=== PATIENT | female | born 1965 | race Caucasian/White ===

== ENCOUNTER → 2016-11-03 | Outpatient (REF) | payer BC ==
[2016-11-03 20:00] LABS: ALBUMIN 3.8 GM/DL (3.2-5.2); ALBUMIN/GLOBULIN RATIO 1.19 (1.00-1.93); ALKALINE PHOSPHATASE 70 U/L (45-117); ALT/SGPT 20 U/L (12-78); ANION GAP 5 MEQ/L (8-16); AST/SGOT 10 U/L (15-37); BILIRUBIN,TOTAL 0.5 MG/DL (0.2-1.0); BLOOD UREA NITROGEN 17 MG/DL (7-18); CALCIUM LEVEL 8.5 MG/DL (8.5-10.1); CARBON DIOXIDE LEVEL 30 MEQ/L (21-32); CHLORIDE LEVEL 104 MEQ/L (98-107); CHOLESTEROL LEVEL 238 MG/DL (<200); CREATININE FOR GFR 0.76 MG/DL (0.55-1.02); GLOMERULAR FILTRATION RATE > 60.0 (>51); GLUCOSE, FASTING 210 MG/DL (70-105); POTASSIUM SERUM 4.4 MEQ/L (3.5-5.1); SODIUM LEVEL 139 MEQ/L (136-145); TRIGLYCERIDES LEVEL 182 MG/DL (<150)
[2016-11-03 20:06] LABS: FREE T4 1.07 NG/DL (0.76-1.46)
== END ==
LOC: M SFHCADAM 09:57
PROVIDERS: ATTEND Family Medicine
DX: E11.9 Type 2 diabetes mellitus without complications (principal); F41.9 Anxiety disorder, unspecified

== ENCOUNTER → 2016-11-03 | Outpatient (CLI) | payer BC | LOC: M ADAMS 13:06 | PROVIDERS: ATTEND Family Medicine | DX: E11.9 Type 2 diabetes mellitus without complications (principal); F41.9 Anxiety disorder, unspecified ==

== ENCOUNTER 2016-11-18 14:11 | Emergency (ER) | payer BC ==
[~2016-11-18] VITALS: Ht 167.6 cm; Wt 90.7 kg
[2016-11-18] MEDS ORDERED: ASPI81TA85 PO (14:36)
[2016-11-18] MEDS ORDERED: GLIP10TA PO (14:36)
[2016-11-18] MEDS ORDERED: SYMB16INH INH (14:36)
[2016-11-18] MEDS ORDERED: METF500T PO (14:36)
[2016-11-18] MEDS ORDERED: ZANTTAB9 PO (14:36)
[2016-11-18] MEDS ORDERED: NAPR500T PO (16:40)
[2016-11-18] MEDS ORDERED: NAPROXEN 250 MG TAB PO ONE (16:45)
[2016-11-18 16:55] VITALS: BP 144/90
--- NOTE | 2016-11-19 09:19 | REP ---
LEFT KNEE SERIES, COMPLETE: 11/18/2016 CLINICAL HISTORY: Knee injury, pain. No prior study. FINDINGS: Spurs in the tibial spines, medial greater than lateral joint margin are noted and suggesting some osteoarthritic change. There appears to be a suprapatellar effusion on the lateral view. The patient could not assume a sunrise position. I cannot tell if there is patellar subluxation. No visible fracture, loose body, osteochondral defect. IMPRESSION: 1. Some degenerative changes at the medial and lateral compartments without visible or displaced/depressed fracture. There is a joint effusion present. Signed by Matrin Saldivar MD 11/19/2016 05:06 P
== END 2016-11-18 16:56 | disposition home or self-care (01) ==
LOC: M ED 16:30
DX: S83.92XA Sprain of unspecified site of left knee, initial encounter (principal); W10.8XXA Fall (on) (from) other stairs and steps, initial encounter; Y92.009 Unspecified place in unspecified non-institutional (private) residence as the place of occurrence of the external cause; Y93.01 Activity, walking, marching and hiking; Y99.8 Other external cause status; J45.909 Unspecified asthma, uncomplicated; E11.9 Type 2 diabetes mellitus without complications; Z88.5 Allergy status to narcotic agent; Z88.0 Allergy status to penicillin; Z79.899 Other long term (current) drug therapy; Z79.51 Long term (current) use of inhaled steroids; Z79.84 Long term (current) use of oral hypoglycemic drugs; Z79.82 Long term (current) use of aspirin

== ENCOUNTER 2017-03-17 19:03 | Emergency (ER) | payer BC ==
[~2017-03-17] VITALS: Ht 160 cm; Wt 90.9 kg
[~2017-03-17 19:03] MED LIST: ASPI81TA85 PO; GLIP10TA PO; METF500T13 PO; NAPR500T PO; SYMB16INH INH; ZANTTAB9 PO
[2017-03-17] MEDS ORDERED: SIMV40TA2 PO (19:19)
[2017-03-17] MEDS ORDERED: METF500T13 PO (19:19)
[2017-03-17] MEDS ORDERED: ACET325T PO (19:19)
[2017-03-17] MEDS ORDERED: MORPHINE 10 MG/ML 1ML VIAL IM ONE (20:00)
[2017-03-17] MEDS ORDERED: LIDOCAINE 2% MDV 20 ML VIAL As Ordered ONE (20:41)
[2017-03-17 21:27] VITALS: BP 129/86
--- NOTE | 2017-03-18 07:42 | REP ---
Right right toes of four views: There is a transverse fracture in the neck of the fifth digit proximal phalange. There is angulation but no displacement. No dislocation. Mineralization joint spaces are otherwise unremarkable. Signed by El Card MD 03/18/2017 07:33 A
--- NOTE | 2017-03-18 07:43 | REP ---
Right foot two views AP and lateral projections: Comparison is the right toes earlier this same date. The fracture in the neck of the fifth digit proximal phalange has been satisfactorily reduced and is in satisfactory position alignment. Mineralization joint spaces are otherwise unremarkable. There is a calcaneal plantar spur. Signed by El Card MD 03/18/2017 07:34 A
[2017-06-16] MEDS ORDERED: RANI150C PO (16:33)
[2017-06-16] MEDS ORDERED: MOBI4TAB PO (17:53)
== END 2017-03-17 21:29 | disposition home or self-care (01) ==
LOC: M ED 19:03
DX: S92.514A Nondisplaced fracture of proximal phalanx of right lesser toe(s), initial encounter for closed fracture (principal); W22.09XA Striking against other stationary object, initial encounter; Y92.019 Unspecified place in single-family (private) house as the place of occurrence of the external cause; Y93.9 Activity, unspecified; Y99.8 Other external cause status; M77.31 Calcaneal spur, right foot; E11.9 Type 2 diabetes mellitus without complications; J45.909 Unspecified asthma, uncomplicated; E78.00 Pure hypercholesterolemia, unspecified; F17.200 Nicotine dependence, unspecified, uncomplicated; Z98.84 Bariatric surgery status

== ENCOUNTER → 2017-12-21 | Outpatient (REF) | payer BC ==
[2017-12-21 18:20] LABS: BASO # 0.1 10^3/uL (0.0-0.2); BASO % 1.4 % (0.0-1.0); EOS # 0.1 10^3/uL (0.0-0.50); EOS % 2.4 % (0.0-3.0); HEMATOCRIT 41.5 % (36.0-47.0); HEMOGLOBIN 13.7 g/dl (12.0-15.5); IMMATURE GRANULOCYTE % 0.2 % (0-3.0); LYMPH # 1.5 10^3/uL (1.5-4.5); LYMPH % 36.2 % (24.0-44.0); MEAN CORPUSCULAR HEMOGLOBIN 28.9 pg (27.0-33.0); MEAN CORPUSCULAR VOLUME 87.6 fl (80.0-96.0); MONO # 0.5 10^3/uL (0.0-0.8); MONO % 10.9 % (0.0-5.0); NEUTROPHILS % 48.9 % (36.0-66.0); PLATELET COUNT, AUTOMATED 255 10^3/uL (150-450); RED BLOOD COUNT 4.74 10^6/uL (4.00-5.40); RED CELL DISTRIBUTION WIDTH 11.8 % (11.5-14.5); WHITE BLOOD COUNT 4.1 10^3/uL (4.0-10.0)
[2017-12-21 18:37] LABS: ALBUMIN 3.8 GM/DL (3.2-5.2); ALBUMIN/GLOBULIN RATIO 1.15 (1.00-1.93); ALKALINE PHOSPHATASE 72 U/L (45-117); ALT/SGPT 19 U/L (12-78); ANION GAP 8 MEQ/L (8-16); AST/SGOT 10 U/L (7-37); BILIRUBIN,TOTAL 0.5 MG/DL (0.2-1.0); BLOOD UREA NITROGEN 13 MG/DL (7-18); CALCIUM LEVEL 8.6 MG/DL (8.5-10.1); CARBON DIOXIDE LEVEL 27 MEQ/L (21-32); CHLORIDE LEVEL 105 MEQ/L (98-107); ESTIMATED AVERAGE GLUCOSE 235 MG/DL (60-110); GLOMERULAR FILTRATION RATE > 60.0 (>51); GLUCOSE, FASTING 240 MG/DL (70-100); HEMOGLOBIN A1c 9.8 %; POTASSIUM SERUM 4.4 MEQ/L (3.5-5.1); SODIUM LEVEL 140 MEQ/L (136-145); THYROID STIMULATING HORMONE 0.512 uIU/ML (0.358-3.740); TOTAL PROTEIN 7.1 GM/DL (6.4-8.2)
== END ==
LOC: M SFHCADAM 09:39
DX: Z00.00 Encounter for general adult medical examination without abnormal findings (principal); E66.9 Obesity, unspecified
CPT/HCPCS: 84443

== ENCOUNTER → 2018-04-05 | Outpatient (REF) | payer BC ==
[2018-04-05 17:08] LABS: ESTIMATED AVERAGE GLUCOSE 174 MG/DL (60-110); HEMOGLOBIN A1c 7.7 %
== END ==
LOC: M SFHCADAM 08:49
DX: E11.9 Type 2 diabetes mellitus without complications (principal)
CPT/HCPCS: 83036

== ENCOUNTER → 2018-04-07 | Outpatient (REF) | payer BC ==
[2018-04-07 12:54] LABS: C REACTIVE PROTEIN QUANTITATIV 0.31 MG/DL (0.00-0.30)
[2018-04-07 12:54] LABS: RHEUMATOID FACTOR QUANT < 10.0 IU/ML (<15.0)
[2018-04-07 13:11] LABS: ERYTHROCYTE SEDIMENTATION RATE 37 mm/hr (0-30)
[2018-04-07 14:36] LABS: ESTIMATED AVERAGE GLUCOSE 171 MG/DL (60-110); HEMOGLOBIN A1c 7.6 %
[2018-04-08 14:22] LABS: ANTINUCLEAR ANTIBODIES DIRECT Negative (Negative); Lyme Disease IgG/IgM Antibodie <0.91 ISR (0.00-0.90); Lyme Disease IgM Ab Quantitati <0.80 index (0.00-0.79)
== END ==
LOC: M SFHCADAM 10:28
DX: M25.50 Pain in unspecified joint (principal); E11.9 Type 2 diabetes mellitus without complications
CPT/HCPCS: 83036

== ENCOUNTER → 2018-06-26 | Outpatient (REF) | payer BC ==
[2018-06-26 13:43] LABS: ESTIMATED AVERAGE GLUCOSE 160 MG/DL (60-110); HEMOGLOBIN A1c 7.2 %
== END ==
LOC: M SFHCADAM 08:35
DX: E11.9 Type 2 diabetes mellitus without complications (principal)

== ENCOUNTER → 2018-07-05 | Outpatient (REF) | payer BC ==
[2018-07-05 17:48] LABS: ALBUMIN 3.5 GM/DL (3.2-5.2); ALBUMIN/GLOBULIN RATIO 1.03 (1.00-1.93); ALKALINE PHOSPHATASE 72 U/L (45-117); ALT/SGPT 18 U/L (12-78); ANION GAP 7 MEQ/L (8-16); AST/SGOT 11 U/L (7-37); BILIRUBIN,TOTAL 0.3 MG/DL (0.2-1.0); BLOOD UREA NITROGEN 19 MG/DL (7-18); CARBON DIOXIDE LEVEL 27 MEQ/L (21-32); CHLORIDE LEVEL 105 MEQ/L (98-107); CREATININE FOR GFR 0.72 MG/DL (0.55-1.30); FREE T4 0.92 NG/DL (0.76-1.46); GLOMERULAR FILTRATION RATE > 60.0 (>51); GLUCOSE, FASTING 226 MG/DL (70-100); POTASSIUM SERUM 4.1 MEQ/L (3.5-5.1); SODIUM LEVEL 139 MEQ/L (136-145); TOTAL PROTEIN 6.9 GM/DL (6.4-8.2)
[2018-07-05 17:49] LABS: BASO # 0.1 10^3/uL (0.0-0.2); BASO % 1.1 % (0.0-1.0); EOS # 0.2 10^3/uL (0.0-0.50); EOS % 3.7 % (0.0-3.0); HEMATOCRIT 40.3 % (36.0-47.0); HEMOGLOBIN 13.5 g/dl (12.0-15.5); IMMATURE GRANULOCYTE % 0.2 % (0-3.0); LYMPH # 1.7 10^3/uL (1.5-4.5); LYMPH % 31.4 % (24.0-44.0); MEAN CORPUSCULAR HEMOGLOBIN 29.9 pg (27.0-33.0); MEAN CORPUSCULAR HGB CONC 33.5 g/dl (32.0-36.5); MEAN CORPUSCULAR VOLUME 89.4 fl (80.0-96.0); MONO # 0.7 10^3/uL (0.0-0.8); MONO % 12.4 % (0.0-5.0); NEUTROPHILS # 2.8 10^3/uL (1.8-7.7); NEUTROPHILS % 51.2 % (36.0-66.0); PLATELET COUNT, AUTOMATED 241 10^3/uL (150-450); RED BLOOD COUNT 4.51 10^6/uL (4.00-5.40); RED CELL DISTRIBUTION WIDTH 12.3 % (11.5-14.5); WHITE BLOOD COUNT 5.4 10^3/uL (4.0-10.0)
== END ==
LOC: M SFHCADAM 09:09
DX: R19.7 Diarrhea, unspecified (principal)
CPT/HCPCS: 84443

== ENCOUNTER → 2018-07-25 | Outpatient (CLI) | payer BC ==
[~2018-07-25] MED LIST changes: +ACET325T PO; +GASTROGRAFIN SOLUTION 30ML (Q9963) As Ordered ONE; +ISOVUE-370 76% 100ML VIAL (Q9967) As Ordered ONE; +MOBI4TAB PO; +NAPR-49 PO; -NAPR500T PO; +RANI150C PO; +SIMV40TA2 PO
--- NOTE | 2018-07-25 11:07 | REP ---
CT abdomen pelvis with IV and oral contrast: History: Diarrhea. No comparison CT study. CT contrast dose: 100 ml of intravenous Isovue 370. CT findings: Preliminary digital criminal justice instructor radiograph demonstrates an IUD, a normal bowel gas pattern, and a lap band device in the left upper quadrant. The lung bases are clear on axial CT images. There is evidence of a small hiatal hernia above the lap band at the GE junction. The liver and the spleen are normal in size. There is a 9 mm hypervascular nodule in the right lobe of the liver consistent with hemangioma. No other significant focal liver lesion is seen. Spleen is unremarkable. There is an accessory splenule. No adrenal lesion is seen. The pancreas is normal in appearance. No gallbladder abnormality is seen. No retroperitoneal mass or adenopathy is observed. Kidneys enhance symmetrically are morphologically intact. There is diverticulosis involving the left colon including splenic flexure and descending colon. Numerous diverticulosis changes are seen in the sigmoid colon but there is no CT evidence of diverticulitis. A normal appendix is seen posterior and medial to the cecum. There is a tiny umbilical hernia transmitting abdominal fat. No other abdominal wall defect is seen. IUD is seen in the uterus. No adnexal abnormality is seen. Urinary bladder is unremarkable. Bone window settings show no significant bony abnormality. Impression: 1. Status post lap band procedure. 2. Small sliding hiatal hernia. 3. Tiny umbilical hernia transmits a small quantity of abdominal fat. 4. Left colonic diverticulosis without CT evidence of diverticulitis. 5. Intrauterine device in place. Otherwise normal. Electronically Signed by Jad Jacome MD 07/25/2018 10:58 A
== END ==
LOC: M RAD 08:34
PROVIDERS: ATTEND Family Medicine
DX: R19.7 Diarrhea, unspecified (principal)
CPT/HCPCS: 74177; Q9963; Q9967

== ENCOUNTER → 2019-10-03 | Outpatient (REF) | payer OTHER ==
[~2019-10-03] MED LIST changes: -GASTROGRAFIN SOLUTION 30ML (Q9963) As Ordered ONE; -ISOVUE-370 76% 100ML VIAL (Q9967) As Ordered ONE; -NAPR-49 PO; +NAPR-837 PO; -SIMV40TA2 PO; +SIMV40TA20 PO
[2019-10-03 17:38] LABS: HEMATOCRIT 42.9 % (36.0-47.0); HEMOGLOBIN 13.8 g/dl (12.0-15.5); MEAN CORPUSCULAR HEMOGLOBIN 28.2 pg (27.0-33.0); MEAN CORPUSCULAR HGB CONC 32.2 g/dl (32.0-36.5); MEAN CORPUSCULAR VOLUME 87.6 fl (80.0-96.0); PLATELET COUNT, AUTOMATED 266 10^3/uL (150-450); WHITE BLOOD COUNT 5.3 10^3/uL (4.0-10.0)
[2019-10-03 17:53] LABS: ALBUMIN 3.8 GM/DL (3.2-5.2); ALT/SGPT 19 U/L (12-78); BILIRUBIN,TOTAL 0.5 MG/DL (0.2-1.0); BLOOD UREA NITROGEN 16 MG/DL (7-18); CALCIUM LEVEL 8.9 MG/DL (8.5-10.1); CARBON DIOXIDE LEVEL 28 MEQ/L (21-32); CHLORIDE LEVEL 102 MEQ/L (98-107); CHOLESTEROL LEVEL 268 MG/DL (<200); CREATININE FOR GFR 0.72 MG/DL (0.55-1.30); FREE T4 1.04 NG/DL (0.76-1.46); GLOMERULAR FILTRATION RATE > 60.0 (>51); GLUCOSE, FASTING 240 MG/DL (70-100); HDL CHOLESTEROL 42 MG/DL (>40); LDL CHOLESTEROL 164 MG/DL (<100); NON-HDL-C 226 MG/DL; SODIUM LEVEL 136 MEQ/L (136-145); THYROID STIMULATING HORMONE 0.826 uIU/ML (0.358-3.740); TOTAL PROTEIN 7.4 GM/DL (6.4-8.2); TRIGLYCERIDES LEVEL 311 MG/DL (<150)
[2019-10-03 18:10] LABS: MALB URINE SIEMENS 45.8 MG/L; MAU/CREAT RATIO 16.4 MCG/MG (0.0-30.0)
== END ==
LOC: M SFHCADAM 11:04
PROVIDERS: ATTEND Family Medicine
DX: Z00.00 Encounter for general adult medical examination without abnormal findings (principal); E11.69 Type 2 diabetes mellitus with other specified complication

== ENCOUNTER → 2019-10-03 | Outpatient (CLI) | payer OTHER | LOC: M ADAMS 12:44 | PROVIDERS: ATTEND Family Medicine | DX: Z00.00 Encounter for general adult medical examination without abnormal findings (principal) ==

== ENCOUNTER → 2019-11-16 | Outpatient (CLI) | payer OTHER | LOC: M LABSMTC 10:29 | PROVIDERS: ATTEND Family Medicine | DX: Z11.59 Encounter for screening for other viral diseases (principal); Z20.818 Contact with and (suspected) exposure to other bacterial communicable diseases ==

== ENCOUNTER 2019-11-22 06:21 | Emergency (ER) | payer OTHER ==
[2019-11-22 06:56] LABS: BASO % 0.6 % (0.0-1.0); EOS % 0.9 % (0.0-3.0); HEMATOCRIT 38.3 % (36.0-47.0); HEMOGLOBIN 12.9 g/dl (12.0-15.5); LYMPH % 29.5 % (24.0-44.0); MEAN CORPUSCULAR HEMOGLOBIN 28.5 pg (27.0-33.0); MEAN CORPUSCULAR HGB CONC 33.7 g/dl (32.0-36.5); MEAN CORPUSCULAR VOLUME 84.7 fl (80.0-96.0); MONO # 0.4 10^3/uL (0.0-0.8); MONO % 10.9 % (0.0-5.0); NEUTROPHILS # 1.9 10^3/uL (1.5-8.5); NEUTROPHILS % 57.8 % (36.0-66.0); PLATELET COUNT, AUTOMATED 181 10^3/uL (150-450); RED BLOOD COUNT 4.52 10^6/uL (4.00-5.40); WHITE BLOOD COUNT 3.3 10^3/uL (4.0-10.0)
[2019-11-22 07:15] VITALS: O2SAT 96
[2019-11-22 07:16] LABS: D-DIMER QUANT < 270 ng/ml (<500)
[2019-11-22 07:22] LABS: INR 0.99; PARTIAL THROMBOPLASTIN TIME 27.9 SECONDS (25.0-38.4); PROTHROMBIN TIME 12.8 SECONDS (11.8-14.0)
[2019-11-22 07:26] LABS: ALBUMIN 3.4 GM/DL (3.2-5.2); ALT/SGPT 21 U/L (12-78); BILIRUBIN,DIRECT 0.2 MG/DL (0.0-0.2); BILIRUBIN,TOTAL 0.3 MG/DL (0.2-1.0); BLOOD UREA NITROGEN 8 MG/DL (7-18); C REACTIVE PROTEIN QUANTITATIV 2.21 MG/DL (0.00-0.30); CALCIUM LEVEL 8.5 MG/DL (8.5-10.1); CARBON DIOXIDE LEVEL 24 MEQ/L (21-32); CHLORIDE LEVEL 104 MEQ/L (98-107); CK-MB VALUE MASS 1.2 NG/ML (<3.6); CPK CREATINE PHOSPHOKINASE 143 U/L (26-192); GLOMERULAR FILTRATION RATE > 60.0 (>51); GLUCOSE, FASTING 281 MG/DL (70-100); LDH LACTATE DEHYDROGENASE 188 U/L (84-246); MB/CK RELATIVE INDEX 0.84 (< OR =4); POTASSIUM SERUM 3.4 MEQ/L (3.5-5.1); SODIUM LEVEL 135 MEQ/L (136-145); TOTAL PROTEIN 7.7 GM/DL (6.4-8.2); TROPONIN I < 0.02 NG/ML (< 0.10)
[2019-11-22] MEDS ORDERED: SYMB16INH INH (08:06)
[2019-11-22] MEDS ORDERED: MOXIFLOXACIN 400 MG TAB PO ONE (08:45)
[2019-11-22 08:57] VITALS: BP 124/78
[2019-11-22] MEDS ORDERED: MOXI1TAB PO (09:04)
--- NOTE | 2019-11-22 09:55 | REP ---
REASON: Known coronavirus infection. PRIORS: None. The technique utilized in obtaining the radiograph has magnified the cardiac silhouette and accentuated the interstitial markings. A subtle developing opacity is seen in the right upper lobe region. Lung curran are otherwise clear, and the pleural angles are sharp. The heart is not enlarged. The osseous structures are within normal limits. IMPRESSION: Suspect developing right upper lobe pneumonia. Electronically Signed by Price Hodges DO 11/22/2019 10:45 A
--- NOTE | 2019-11-22 11:41 | ECGEPIP ---
[facility] - ED Test Date: 2019-11-22 Pat Name: RODNEY PHILLIPS Department: Room: - Gender: Female Community Center Coordinator: alejandra : 1965 Requested By: Staci Zavaleta Order Number: [id number] Reading MD: Staci Zavaleta Measurements Intervals [place] Rate: 94 P: 45 MT: 168 QRS: 6 QRSD: 75 T: 19 QT: 365 QTc: 458 Interpretive Statements SINUS RHYTHM LOW QRS VOLTAGE IN PRECORDIAL LEADS NONSPECIFIC ST T WAVE CHANGES NO PRIOR ECG FOR COMPARISON Electronically Signed on 11-22-2019 11:40:43 EDT by Staci Zavaleta
[2019-11-23] MEDS ORDERED: GLIP10TA18 PO (09:10)
[2019-11-23] MEDS ORDERED: VENTAER INH (09:10)
[2019-11-23] MEDS ORDERED: MOXI1TAB PO (09:10)
[2019-11-23] MEDS ORDERED: RANI150T14 PO (09:10)
[2019-11-23] MEDS ORDERED: METF10004 PO (09:10)
[2019-11-23] MEDS ORDERED: SYMB16INH INH (09:10)
== END 2019-11-22 09:20 | disposition home or self-care (01) ==
LOC: M ED 06:21
DX: U07.1 COVID-19 (principal); J12.81 Pneumonia due to SARS-associated coronavirus; Z20.89 Contact with and (suspected) exposure to other communicable diseases; E11.9 Type 2 diabetes mellitus without complications; E78.5 Hyperlipidemia, unspecified; K21.9 Gastro-esophageal reflux disease without esophagitis; J45.909 Unspecified asthma, uncomplicated; Z79.82 Long term (current) use of aspirin; Z79.4 Long term (current) use of insulin; Z79.899 Other long term (current) drug therapy; Z88.0 Allergy status to penicillin; Z88.5 Allergy status to narcotic agent

== ENCOUNTER 2019-11-23 06:38 | Inpatient (IN) | payer OTHER ==
[2019-11-23] VITALS (9 sets, daily range): BP systolic 111–122; BP diastolic 73–78; O2SAT 93–98
[~2019-11-23] VITALS: Ht 157.5 cm; Wt 87.4 kg
[~2019-11-23 06:38] MED LIST changes: +MOXI1TAB PO
[2019-11-23 07:25] LABS: BASO % 0.7 % (0.0-1.0); EOS % 0.5 % (0.0-3.0); HEMATOCRIT 41.1 % (36.0-47.0); HEMOGLOBIN 13.7 g/dl (12.0-15.5); LYMPH # 1.2 10^3/uL (1.5-5.0); LYMPH % 29.9 % (24.0-44.0); MEAN CORPUSCULAR HEMOGLOBIN 28.8 pg (27.0-33.0); MEAN CORPUSCULAR HGB CONC 33.3 g/dl (32.0-36.5); MEAN CORPUSCULAR VOLUME 86.3 fl (80.0-96.0); MONO # 0.4 10^3/uL (0.0-0.8); NEUTROPHILS # 2.4 10^3/uL (1.5-8.5); NEUTROPHILS % 59.2 % (36.0-66.0); PLATELET COUNT, AUTOMATED 205 10^3/uL (150-450); RED BLOOD COUNT 4.76 10^6/uL (4.00-5.40); WHITE BLOOD COUNT 4.1 10^3/uL (4.0-10.0)
[2019-11-23 07:53] LABS: ALBUMIN 3.3 GM/DL (3.2-5.2); ALT/SGPT 23 U/L (12-78); BILIRUBIN,TOTAL 0.3 MG/DL (0.2-1.0); BLOOD UREA NITROGEN 12 MG/DL (7-18); C REACTIVE PROTEIN QUANTITATIV 3.94 MG/DL (0.00-0.30); CALCIUM LEVEL 8.7 MG/DL (8.5-10.1); CARBON DIOXIDE LEVEL 25 MEQ/L (21-32); CHLORIDE LEVEL 103 MEQ/L (98-107); CK-MB VALUE MASS < 1.0 NG/ML (<3.6); CPK CREATINE PHOSPHOKINASE 129 U/L (26-192); CREATININE FOR GFR 0.88 MG/DL (0.55-1.30); GLOMERULAR FILTRATION RATE > 60.0 (>51); GLUCOSE, FASTING 275 MG/DL (70-100); LDH LACTATE DEHYDROGENASE 226 U/L (84-246); MB/CK RELATIVE INDEX 0.78 (< OR =4); POTASSIUM SERUM 3.6 MEQ/L (3.5-5.1); SODIUM LEVEL 137 MEQ/L (136-145); TOTAL PROTEIN 7.7 GM/DL (6.4-8.2); TROPONIN I < 0.02 NG/ML (< 0.10)
--- NOTE | 2019-11-23 08:04 | REP ---
Clinical: Dyspnea. COVID-19 positive . Comparison: 11/22/2019 . Findings: The mediastinum and cardiac silhouette are stable and within normal limits for portable technique. Very subtle air space disease along the periphery of the right hemithorax is again suggested. Trace linear atelectasis at the left base identified. Impression: Very subtle air space disease involving the periphery of the right lung similar to prior examination along with trace left basilar linear atelectasis. Electronically Signed by Grabiel Goodman MD 11/23/2019 07:55 A
[2019-11-23] MEDS ORDERED: COMBIVENT RESPIMAT 100-20MCG INHALER 4GM INH ONE (08:45)
[2019-11-23] MEDS ORDERED: ALBUTEROL 90 MCG/ACT 8GM HFA INHALER INH PRN ×2 (09:00→11:30)
[2019-11-23] MEDS ORDERED: predniSONE 20 MG TAB PO SCH (09:00)
[2019-11-23] MEDS ORDERED: METF10004 PO (09:10)
[2019-11-23] MEDS ORDERED: MOXI1TAB PO (09:10)
[2019-11-23] MEDS ORDERED: VENTAER INH (09:10)
[2019-11-23] MEDS ORDERED: SYMB16INH INH (09:10)
[2019-11-23] MEDS ORDERED: GLIP10TA18 PO (09:10)
[2019-11-23] MEDS ORDERED: RANI150T14 PO (09:10)
[2019-11-23] MEDS: AZITHROMYCIN INJ 500 MG, VIAL MATE ADAPTER 1 EACH in D5W 250 ML IV SCH (10:08)
[2019-11-23 10:32] LABS: BASO % 0.6 % (0.0-1.0); EOS % 0.3 % (0.0-3.0); HEMATOCRIT 41.7 % (36.0-47.0); HEMOGLOBIN 14.3 g/dl (12.0-15.5); LYMPH # 0.7 10^3/uL (1.5-5.0); LYMPH % 20.8 % (24.0-44.0); MEAN CORPUSCULAR HEMOGLOBIN 29.1 pg (27.0-33.0); MEAN CORPUSCULAR HGB CONC 34.3 g/dl (32.0-36.5); MEAN CORPUSCULAR VOLUME 84.9 fl (80.0-96.0); MONO # 0.3 10^3/uL (0.0-0.8); MONO % 8.7 % (0.0-5.0); NEUTROPHILS # 2.5 10^3/uL (1.5-8.5); PLATELET COUNT, AUTOMATED 194 10^3/uL (150-450); RED BLOOD COUNT 4.91 10^6/uL (4.00-5.40); WHITE BLOOD COUNT 3.6 10^3/uL (4.0-10.0)
[2019-11-23 10:48] LABS: INR 1.07; PARTIAL THROMBOPLASTIN TIME 24.3 SECONDS (25.0-38.4); PROTHROMBIN TIME 13.7 SECONDS (11.8-14.0)
[2019-11-23 10:51] LABS: D-DIMER QUANT 415.47 ng/ml (<500)
[2019-11-23 10:56] LABS: C REACTIVE PROTEIN QUANTITATIV 3.85 MG/DL (0.00-0.30); FERRITIN 312 NG/ML (8-252); LDH LACTATE DEHYDROGENASE 213 U/L (84-246); NT-PRO BNP 25 PG/ML (<125); TRIGLYCERIDES LEVEL 117 MG/DL (<150); TROPONIN I < 0.02 NG/ML (< 0.10)
[2019-11-23 11:42] LABS: HIV 1&2 SCREEN CENTAUR NEGATIVE (NEGATIVE)
[2019-11-23] MEDS ORDERED: GLUCAGON INJ 1MG VIAL SC PRN (13:15)
[2019-11-23] MEDS ORDERED: GLUCOSE 4GM CHEW TABLET PO PRN (13:15)
[2019-11-23] MEDS ORDERED: DEXTROSE 50% 50 ML SYRINGE IV PRN (13:15)
[2019-11-23] MEDS: COMBIVENT RESPIMAT 100-20MCG INHALER 4GM INH SCH ×2 (14:02→20:59)
[2019-11-23] MEDS: HYDROXYCHLOROQUINE 200 MG TAB PO SCH ×2 (14:23→20:41)
[2019-11-23] MEDS: ASPIRIN 81 MG CHEW TABLET PO SCH (14:24)
[2019-11-23] MEDS: FAMOTIDINE 20 MG TAB PO SCH (14:24)
[2019-11-23] MEDS: ENOXAPARIN 40MG/0.4ML SYRINGE (J1650 PER 10MG) SC SCH ×2 (14:25→20:41)
[2019-11-23] MEDS: ACETAMINOPHEN TAB 650MG DOSE (2X325MG) PO SCH ×2 (15:52→20:41)
[2019-11-23] MEDS: HumaLOG INSULIN (NovoLOG) PER UNIT SC SCH (16:51)
[2019-11-23] MEDS ORDERED: cefTRIAXone SOD 1 GM in D5W MINI-BAG PLUS 50 ML IV SCH (17:45)
--- NOTE | 2019-11-23 18:08 | HPEPDOC ---
[facility] Medical History & Physical Date of Admission Nov 23, 2019 Date of Service: Nov 23, 2019 Primary Care Physician: MARLEN MANRIQUEZ DO Attending Physician: Violeta Anguiano MD History and Physical CHIEF COMPLAINT: Shortness of breath HISTORY OF PRESENT ILLNESS: The patient is a 53-year-old female with past medical history of asthma, diabetes mellitus type 2, GERD who presented to [facility] emergency room with the chief complaint of worsening shortness of breath since 11/15/2019. The patient was diagnosed with Covid 19 on 11/17/2019. She's been having increased shortness of breath, a productive cough with clear sputum, lethargy, fevers at home as high as 101.4, nonbloody diarrhea, decreased appetite, body aches, dizziness and lightheadedness. She took her pulse ox at home which showed she was 90%. She felt as though she was in a "passed out". She tried taking 2 puffs of MDI inhaler but then called EMS. She came to the emergency room on 11/22/2019 and was discharged home with medications and told to follow-up with her primary care provider and public health. Since being at home; however, she has had increased shortness of breath, worsening back pain, dizziness and lightheadedness. She denies abdominal pain, chest pain. Her and daughter are also positive for Covid 19. In the emergency room, ABG on room air showed PaO2 in the 70s. She was placed on 2 L of oxygen. Other vital signs showed temperature 96.9, pulse 104, blood pressure 108/76, respiratory rate 28, O2 sat 96% on 2 L NC. Her lungs were diminished bilaterally on examination, no expiratory wheezing was heard. CXR showed subtle air space disease involving the periphery of the right lung similar to prior examination along with trace left basilar linear atelectasis. Fibrinogen, CRP, ferritin were elevated. D-dimer was asked than 500. The patient was admitted under inpatient status for acute asthma exacerbation, community acquired pneumonia, Covid 19 infection. REVIEW OF SYSTEMS: CONSTITUTIONAL: Denies unexplained weight gain or weight loss, night sweats EYES: Denies eye drainage, eye pain, visual changes, dry/irritated eye EARS, NOSE, MOUTH, THROAT: Denies difficulty hearing, ringing in ears, mouth sores, loose teeth, sore throat, facial numbness or pain NECK: Denies swollen glands CARDIOVASCULAR: Denies irregular heartbeat, chest pains, swelling of feet or legs RESPIRATORY: Denies night sweats, oxygen at home, coughing up blood, cough lasting > 1 month GASTROINTESTINAL: Denies abdominal pain, constipation, bloody stool, heartburn, nausea, vomiting GENITOURINARY: Denies painful urination, bloody urine, frequent urination, urgency, leaking urine, impotence MUSCULOSKELETAL: Denies joint pain, muscle pain, leg swelling INTEGUMENTARY: Denies rash, itching, new skin lesion, change in existing skin lesion, hair loss or increase, breast changes. NEUROLOGICAL: Denies headaches, numbness or tingling PSYCHIATRIC: Denies depression, anxiety, recurrent bad thoughts, mood swings, hallucinations PAST MEDICAL HISTORY: 1. Asthma 2. Diabetes mellitus type II 3. GERD 4. COVID 19 infection (Dx 11/17/2019) 5. Tobacco use history PAST SURGICAL HISTORY: 1. Right ACL repair 2. Left meniscus surgery 3. Lap band placement FAMILY HISTORY: Father: CAD, [place], at 50 Mother: Breast cancer, dementia, diabetes. Alive. Brother: diabetes mellitus, tachycardia. Alive Sister: DM type II. Alive. SOCIAL HISTORY: Prior smoker for 15 years, less than 1 pack per day. Quit 16 years ago. Drinks alcohol socially. Denies drug use. Her primary care provider is Dr. Manriquez. She is a full code. ALLERGIES: Penicillin Hydrocodone Oxycodone HOME MEDICATIONS: Please see below. PHYSICAL EXAMINATION: CONSTITUTIONAL: No acute distress, resting comfortably, AAO x 3 EYES: PERRLA, EOM intact HENT, MOUTH: Normocephalic, atraumatic, moist mucous membranes, NECK: SUPPLE, no JVD, no lymphadenopathy, no carotid bruit CV: Tachycardic, Regular rhythm, S1S2 normal, no murmurs/rubs/gallops RESPIRATORY: Diminished breath sounds bilaterally, no rales/rhonchi/wheezes GI: Obese abdomen, BS positive in 4 quadrants, soft, nontender, nondistended, no rebound or guarding, no organomegaly : Deferred MUSCULOSKELETAL: Normal ROM. No cyanosis, clubbing, swelling, joint deformity, extremity edema INTEGUMENTARY: Intact, no rashes, no lesions, no erythema NEUROLOGIC: Cranial Nerves II-XII are intact, no focal deficits PSYCHIATRIC: Mood and affect are normal LABORATORY DATA: Please see below IMAGING: CXR showed subtle air space disease involving the periphery of the right lung similar to prior examination along with trace left basilar linear atelectasis. ASSESSMENT: Patient is a 53-year-old female admitted inpatient status for acute asthma exacerbation, community acquired pneumonia, Covid 19 infection. PLAN: 1. Acute asthma exacerbation. Methylprednisolone BID (d/c as soon as possible with COVID 19 infection), Combivent ATC, albuterol PRN, peak flow daily, telemetry, supplemental O2. 2. Confirmed Covid 19, community acquired pneumonia. Procalcitonin low. As per protocol follow-up CRP, CBC with differential, ferritin, pro-calcitonin, LDH, BNP, troponin, d-dimer, fibrinogen, PT/PTT every 12 hours. Follow up baseline HIV1/HIV2, interleukin-6, pro-calcitonin. Start hydroxychloroquine 400 mg by mouth twice a day 1 day then 200 mg by mouth daily 4 days and azithromycin 500 mg IV Q24H. Monitoring QTC with daily ECG and telemetry. Enoxaparin 0.5 mg/kg BID. Incentive spirometer Q2 hrs while awake, OOBTC and OOB with meals. Contact and droplet precautions initiated. Continue with supportive care and Q4H oxygen monitoring. O2 supplementation PRN. 3. DM type II. Holding home PO meds. ISS, AC/HS finger sticks, consistent carb diet. 4. GERD. Famotidine. 5. DVT px. Enoxaparin SC BID. DISPOSITION: Admitted under inpatient status. Plan is treatment and discharge home when medically improved. Vital Signs Vital Signs Date Time Temp Pulse Resp B/P (MAP) Pulse Ox O2 Delivery O2 Flow Rate FiO2 11/23/19 16:00 96 Room Air 11/23/19 15:43 98.9 103 24 114/78 (90) Laboratory Data Labs 24H Laboratory Tests 2 11/23/19 07:10: Immature Granulocyte % (Auto) 0.7, Neutrophils (%) (Auto) 59.2, Lymphocytes (%) (Auto) 29.9, Monocytes (%) (Auto) 9.0H, Eosinophils (%) (Auto) 0.5, Basophils (%) (Auto) 0.7, Neutrophils # (Auto) 2.4, Lymphocytes # (Auto) 1.2L, Monocytes # (Auto) 0.4, Eosinophils # (Auto) 0.0, Basophils # (Auto) 0.0, Nucleated Red Blood Cells % (auto) 0.0, D-Dimer, Quantitative 320.49, Anion Gap 9, Glomerular Filtration Rate > 60.0, Lactic Acid Level 1.7, Calcium Level 8.7, Total Bilirubin 0.3, Aspartate Amino Transf (AST/SGOT) 23, Alanine Aminotransferase (ALT/SGPT) 23, Alkaline Phosphatase 73, Lactate Dehydrogenase 226, Total Creatine Kinase 129, Creatine Kinase MB < 1.0, Creatine Kinase MB Relative Index 0.78, Troponin I < 0.02, C-Reactive Protein, Quantitative 3.94H, Total Protein 7.7, Albumin 3.3, Albumin/Globulin Ratio 0.75L, Procalcitonin 0.04 11/23/19 07:18: POC pH (Misc Panel) 7.480H, POC Base Excess (Misc Panel) -3.0L, POC Saturated Percent O2 (Misc) 96, POC pO2 (Misc Panel) 74.0L, POC pCO2 (Misc Panel) 27.3L, POC HCO3 (Misc Panel) 20.3L, POC Total CO2 (Misc Panel) 21.0L 11/23/19 10:13: Immature Granulocyte % (Auto) 0.6, Neutrophils (%) (Auto) 69.0H, Lymphocytes (%) (Auto) 20.8L, Monocytes (%) (Auto) 8.7H, Eosinophils (%) (Auto) 0.3, Basophils (%) (Auto) 0.6, Neutrophils # (Auto) 2.5, Lymphocytes # (Auto) 0.7L, Monocytes # (Auto) 0.3, Eosinophils # (Auto) 0.0, Basophils # (Auto) 0.0, Nucleated Red Blood Cells % (auto) 0.0, D-Dimer, Quantitative 415.47, Lactate Dehydrogenase 213, Troponin I < 0.02, C-Reactive Protein, Quantitative 3.85H, Prothrombin Time 13.7, Prothromb Time International Ratio 1.07, Activated Partial Thromboplast Time 24.3L, Fibrinogen 767H, Ferritin 312H, QK-Cex-G-Type Natriuretic Peptide 25, Triglycerides Level 117, HIV Antigen/Antibody Combo Qual NEGATIVE 11/23/19 10:14: 11/23/19 16:44: Bedside Glucose (Misc Panel) 319H CBC/BMP Laboratory Tests 11/23/19 07:10 11/23/19 10:13 Microbiology Microbiology 11/23/19 Blood Culture, Received Pending 11/23/19 Blood Culture, Received Pending Home Medications Scheduled Aspirin (Aspir 81) 81 Mg Tab, 81 MG PO DAILY Budesonide/Formoterol (Symbicort 160-4.5 Mcg Inhaler) 6 Gm Hfa.aer.ad, 2 PUFF INH BID Glipizide (Glipizide ER) 10 Mg Tab.er.24, 10 MG PO DAILY Metformin HCl (Metformin HCl) 1,000 Mg Tablet, 1,000 MG PO DAILY Moxifloxacin HCl (Moxifloxacin HCl) 400 Mg Tablet, 400 MG PO DAILY FILLED 11/22/19 FOR 7 DAYS Ranitidine HCl (Ranitidine HCl) 150 Mg Tablet, 1 TAB PO DAILY Scheduled PRN Acetaminophen (Pain Reliever) 325 Mg Tab, 650 MG PO QID PRN for PAIN Albuterol Sulfate (Ventolin Hfa) 18 Gm Hfa.aer.ad, 2 PUFFS INH QID PRN for SHORTNESS OF BREATH Allergies Coded Allergies: hydrocodone (Verified Allergy, Intermediate, altered mental , 11/22/19) oxycodone (Verified Allergy, Intermediate, altered, 11/22/19) Penicillins (Verified Allergy, Unknown, 11/22/19) A-FIB/CHADSVASC A-FIB History Current/History of A-Fib/PAF?: No Current PO Anticoag Therapy: No Age/Risk Factor Scoring CHADSVASC: CHADSVASC Response (Comments) Value Age Risk Factor Age < 65 years old 0 Gender Risk Factor Female 1 Hx of CHF No 0 Hx of HTN No 0 Hx of Stroke/TIA/or VTE No 0 Hx of Diabetes Yes 1 Hx of Vascular Disease No 0 Total 2 Treatment Treatment ordered: Other (enoxaparin) Other anticoagulant ordered: Violeta Roman MD Nov 23, 2019 18:08
[2019-11-23] MEDS: SYMBICORT 160/4.5MCG INHALER 6GM INH SCH (20:00)
[2019-11-23 21:04] LABS: BASO % 0.4 % (0.0-1.0); HEMATOCRIT 38.9 % (36.0-47.0); LYMPH # 0.6 10^3/uL (1.5-5.0); LYMPH % 22.8 % (24.0-44.0); MEAN CORPUSCULAR HEMOGLOBIN 28.3 pg (27.0-33.0); MEAN CORPUSCULAR HGB CONC 33.4 g/dl (32.0-36.5); MEAN CORPUSCULAR VOLUME 84.7 fl (80.0-96.0); MONO # 0.1 10^3/uL (0.0-0.8); MONO % 3.9 % (0.0-5.0); NEUTROPHILS # 1.9 10^3/uL (1.5-8.5); NEUTROPHILS % 72.1 % (36.0-66.0); PLATELET COUNT, AUTOMATED 221 10^3/uL (150-450); RED BLOOD COUNT 4.59 10^6/uL (4.00-5.40); WHITE BLOOD COUNT 2.6 10^3/uL (4.0-10.0)
[2019-11-23 21:16] LABS: INR 1.03; PARTIAL THROMBOPLASTIN TIME 29.4 SECONDS (25.0-38.4); PROTHROMBIN TIME 13.2 SECONDS (11.8-14.0)
[2019-11-23 21:40] LABS: C REACTIVE PROTEIN QUANTITATIV 3.92 MG/DL (0.00-0.30); FERRITIN 329 NG/ML (8-252); LDH LACTATE DEHYDROGENASE 189 U/L (84-246); NT-PRO BNP 26 PG/ML (<125); TRIGLYCERIDES LEVEL 196 MG/DL (<150); TROPONIN I < 0.02 NG/ML (< 0.10)
[2019-11-24] VITALS (24 sets, daily range): BP systolic 116–138; BP diastolic 68–90; O2SAT 92–96
[2019-11-24] MEDS: methylPREDNISolone INJ 125 MG/2 ML VIAL (J2930) IV SCH ×2 (01:19→14:09)
[2019-11-24] MEDS: COMBIVENT RESPIMAT 100-20MCG INHALER 4GM INH SCH ×4 (01:47→20:00)
[2019-11-24 06:12] LABS: BASO % 0.2 % (0.0-1.0); HEMATOCRIT 37.5 % (36.0-47.0); HEMOGLOBIN 13.1 g/dl (12.0-15.5); LYMPH # 0.6 10^3/uL (1.5-5.0); LYMPH % 12.5 % (24.0-44.0); MEAN CORPUSCULAR HEMOGLOBIN 29.4 pg (27.0-33.0); MEAN CORPUSCULAR HGB CONC 34.9 g/dl (32.0-36.5); MEAN CORPUSCULAR VOLUME 84.1 fl (80.0-96.0); MONO # 0.1 10^3/uL (0.0-0.8); NEUTROPHILS # 4.1 10^3/uL (1.5-8.5); NEUTROPHILS % 84.7 % (36.0-66.0); PLATELET COUNT, AUTOMATED 234 10^3/uL (150-450); RED BLOOD COUNT 4.46 10^6/uL (4.00-5.40); WHITE BLOOD COUNT 4.9 10^3/uL (4.0-10.0)
[2019-11-24 06:44] LABS: ALBUMIN 3.3 GM/DL (3.2-5.2); ALT/SGPT 23 U/L (12-78); BILIRUBIN,TOTAL 0.3 MG/DL (0.2-1.0); BLOOD UREA NITROGEN 15 MG/DL (7-18); C REACTIVE PROTEIN QUANTITATIV 3.48 MG/DL (0.00-0.30); CALCIUM LEVEL 8.8 MG/DL (8.5-10.1); CARBON DIOXIDE LEVEL 23 MEQ/L (21-32); CHLORIDE LEVEL 106 MEQ/L (98-107); CREATININE FOR GFR 0.63 MG/DL (0.55-1.30); FERRITIN 322 NG/ML (8-252); GLOMERULAR FILTRATION RATE > 60.0 (>51); GLUCOSE, FASTING 283 MG/DL (70-100); LDH LACTATE DEHYDROGENASE 194 U/L (84-246); NT-PRO BNP 35 PG/ML (<125); POTASSIUM SERUM 4.4 MEQ/L (3.5-5.1); SODIUM LEVEL 137 MEQ/L (136-145); TOTAL PROTEIN 7.3 GM/DL (6.4-8.2); TRIGLYCERIDES LEVEL 102 MG/DL (<150); TROPONIN I < 0.02 NG/ML (< 0.10)
[2019-11-24] MEDS: SYMBICORT 160/4.5MCG INHALER 6GM INH SCH ×2 (08:00→20:00)
[2019-11-24] MEDS: HYDROXYCHLOROQUINE 200 MG TAB PO SCH ×2 (08:29→20:57)
[2019-11-24] MEDS: HumaLOG INSULIN (NovoLOG) PER UNIT SC SCH ×3 (08:29→17:04)
[2019-11-24] MEDS: ENOXAPARIN 40MG/0.4ML SYRINGE (J1650 PER 10MG) SC SCH ×2 (08:29→20:58)
[2019-11-24] MEDS: ASPIRIN 81 MG CHEW TABLET PO SCH (08:30)
[2019-11-24] MEDS: FAMOTIDINE 20 MG TAB PO SCH (08:30)
[2019-11-24] MEDS: ACETAMINOPHEN TAB 650MG DOSE (2X325MG) PO SCH ×3 (08:30→20:58)
[2019-11-24] MEDS: AZITHROMYCIN INJ 500 MG, VIAL MATE ADAPTER 1 EACH in D5W 250 ML IV SCH (08:31)
--- NOTE | 2019-11-24 08:59 | ECGEPIP ---
[facility] Test Date: 2019-11-24 Pat Name: RODNEY PHILLIPS Department: Room: [place] [address] Gender: Female Parimutuel Ticket Seller: PEEWEE : 1965 Requested By: Violeta Chow Order Number: [id number] Reading MD: Alden Arciniega Measurements Intervals [place] Rate: 104 P: 51 CA: 195 QRS: 18 QRSD: 75 T: 8 QT: 355 QTc: 468 Interpretive Statements SINUS TACHYCARDIA, Low precordial voltages. ABNORMAL RHYTHM ECG Slightly increased heart rate compared with 11/23/2019. Electronically Signed on 11-24-2019 8:59:17 EDT by Alden Arciniega
--- NOTE | 2019-11-24 09:06 | ECGEPIP ---
[facility] - ED Test Date: 2019-11-23 Pat Name: RODNEY PHILLIPS Department: Room: [place] [address] Gender: Female Bindery Chief: : 1965 Requested By: FOUZIA Piedra Order Number: [id number] Reading MD: Vanessa Vasquez Measurements Intervals [place] Rate: 99 P: 29 NV: 160 QRS: 2 QRSD: 73 T: 9 QT: 357 QTc: 459 Interpretive Statements SINUS RHYTHM LOW QRS VOLTAGE IN PRECORDIAL LEADS NSTTW abnormalities SIMILAR 11/22/19 Electronically Signed on 11-24-2019 9:06:05 EDT by Vanessa Vasquez
[2019-11-24 09:44] LABS: INR 1.15; PROTHROMBIN TIME 14.5 SECONDS (11.8-14.0)
[2019-11-24 09:45] LABS: PARTIAL THROMBOPLASTIN TIME 29.2 SECONDS (25.0-38.4)
[2019-11-24 09:47] LABS: D-DIMER QUANT 966.35 ng/ml (<500)
--- NOTE | 2019-11-24 11:03 | IPNPDOC ---
Subjective Date Seen The patient was seen on 11/24/19. Subjective Chief Complaint/HPI Patient is comfortable. Feeling mild short of breath on exertion but otherwise improved air exchange since admission General: Denies: ROS Unobtainable, Chills, Night Sweats, Fatigue, Malaise, Normal Appetite, Other Symptoms Constitutional: Denies: Chills, Fever, Malaise, Night Sweats, Weakness, Fatig ue, Weight Loss, Lethargy, Other Pulmonary: Reports: Dyspnea; Denies: Cough, Pleuritic Chest Pain, Other Symptoms Cardiovascular: Denies: Chest Pain, Palpitations, Orthopnea, Paroxysmal Noc. Dyspnea, Edema, Lt Headedness, Other Symptoms Gastrointestinal: Denies: Nausea, Vomiting, Abdominal Pain, Diarrhea, Constipation, Melena, Hematochezia, Other Symptoms Genitourinary: Denies: Dysuria, Frequency, Incontinence, Hematuria, Retention, Other Symptoms Musculoskeletal: Denies: Neck Pain, Back Pain, Shoulder Pain, Arm Pain, Hand Pain, Leg Pain, Foot Pain, Joint Pain, Muscle Pain, Spasms, Other Symptoms Neurological: Denies: Weakness, Numbness, Incoordination, Change in speech, Confusion, Seizures, Other Symptoms Objective Physical Examination General Exam: Positive: Alert, Cooperative Eye Exam: Positive: PERRLA, Conjunctiva & lids normal ENT Exam: Positive: Atraumatic, Mucous membr. moist/pink Neck Exam: Positive: Supple Chest Exam: Positive: Clear to auscultation, Normal air movement Heart Exam: Positive: Normal S1, Normal S2 Abdomen Exam: Positive: Normal bowel sounds, Soft Extremity Exam: Positive: Normal pulses Skin Exam: Positive: Nl turgor and temperature Neuro Exam: Positive: Strength at 5/5 X4 ext, Sensation Intact, Cranial Nerves 3-12 NL Psych Exam: Positive: Memory Intact, Oriented x 3 Assessment /Plan Problems (1) Exacerbation of asthma Status: Acute Problem Text: Patient progressively improving Continue nebulizer and by mouth steroids as per orders Patient's pulse ox is 95% on room air Oxygen support as needed Possible discharge home on tapering dose of steroids and all her inhalers Out of bed as tolerated (2) SARS-associated coronavirus infection Status: Acute Problem Text: Patient was diagnosed with COVID-19 on 11/16 Continue supportive care Plan/VTE VTE Prophylaxis Ordered?: Yes VS, I&O, 24H, Fishbone Vital Signs/I&O Vital Signs Date Time Temp Pulse Resp B/P (MAP) Pulse Ox O2 Delivery O2 Flow Rate FiO2 11/24/19 10:00 93 Room Air 11/24/19 08:00 97.4 93 18 124/74 (91) I&O- Last 24 Hours up to 6 AM 11/24/19 05:59 Intake Total 1855 ml Output Total 1550 ml Balance 305 ml Laboratory Data 24H LABS Laboratory Tests 2 11/23/19 16:44: Bedside Glucose (Misc Panel) 319H 11/23/19 20:36: Bedside Glucose (Misc Panel) 317H 11/23/19 20:53: Immature Granulocyte % (Auto) 0.8, Neutrophils (%) (Auto) 72.1H, Lymphocytes (%) (Auto) 22.8L, Monocytes (%) (Auto) 3.9, Eosinophils (%) (Auto) 0.0, Basophils (%) (Auto) 0.4, Neutrophils # (Auto) 1.9, Lymphocytes # (Auto) 0.6L, Monocytes # (Auto) 0.1, Eosinophils # (Auto) 0.0, Basophils # (Auto) 0.0, Nucleated Red Blood Cells % (auto) 0.0, Prothrombin Time 13.2, Prothromb Time International Ratio 1.03, Activated Partial Thromboplast Time 29.4, Fibrinogen 740H, D-Dimer, Quantitative 2015.20H, Ferritin 329H, Lactate Dehydrogenase 189, Troponin I < 0.02, C-Reactive Protein, Quantitative 3.92H, EK-Uug-Y-Type Natriuretic Peptide 26, Triglycerides Level 196H 11/24/19 05:53: Immature Granulocyte % (Auto) 0.6, Neutrophils (%) (Auto) 84.7H, Lymphocytes (%) (Auto) 12.5L, Monocytes (%) (Auto) 2.0, Eosinophils (%) (Auto) 0.0, Basophils (%) (Auto) 0.2, Neutrophils # (Auto) 4.1, Lymphocytes # (Auto) 0.6L, Monocytes # (Auto) 0.1, Eosinophils # (Auto) 0.0, Basophils # (Auto) 0.0, Nucleated Red Blood Cells % (auto) 0.0, Ferritin 322H, Lactate Dehydrogenase 194, Troponin I < 0.02, C-Reactive Protein, Quantitative 3.48H, DV-Dpo-L-Type Natriuretic Peptide 35, Triglycerides Level 102, Anion Gap 8, Glomerular Filtration Rate > 60.0, Calcium Level 8.8, Total Bilirubin 0.3, Aspartate Amino Transf (AST/SGOT) 16, Alanine Aminotransferase (ALT/SGPT) 23, Alkaline Phosphatase 76, Total Protein 7.3, Albumin 3.3, Albumin/Globulin Ratio 0.83L 11/24/19 08:00: Prothrombin Time 14.5H, Prothromb Time International Ratio 1.15, Activated Partial Thromboplast Time 29.2, Fibrinogen 641H, D-Dimer, Quantitative 966.35H CBC/BMP Laboratory Tests 11/23/19 20:53 11/24/19 05:53 Microbiology Microbiology 11/23/19 Blood Culture - Preliminary, Resulted No growth after 24 hours . All specim... 11/23/19 Blood Culture - Preliminary, Resulted No growth after 24 hours . All specim... ARMIN FUCHS MD Nov 24, 2019 11:03
[2019-11-24 21:35] LABS: BASO % 0.1 % (0.0-1.0); HEMATOCRIT 36.7 % (36.0-47.0); HEMOGLOBIN 12.3 g/dl (12.0-15.5); LYMPH # 0.8 10^3/uL (1.5-5.0); LYMPH % 9.3 % (24.0-44.0); MEAN CORPUSCULAR HEMOGLOBIN 28.2 pg (27.0-33.0); MEAN CORPUSCULAR HGB CONC 33.5 g/dl (32.0-36.5); MEAN CORPUSCULAR VOLUME 84.2 fl (80.0-96.0); MONO # 0.4 10^3/uL (0.0-0.8); MONO % 4.1 % (0.0-5.0); NEUTROPHILS # 7.3 10^3/uL (1.5-8.5); NEUTROPHILS % 85.8 % (36.0-66.0); PLATELET COUNT, AUTOMATED 258 10^3/uL (150-450); RED BLOOD COUNT 4.36 10^6/uL (4.00-5.40); WHITE BLOOD COUNT 8.5 10^3/uL (4.0-10.0)
[2019-11-24 21:46] LABS: INR 1.05; PARTIAL THROMBOPLASTIN TIME 26.6 SECONDS (25.0-38.4); PROTHROMBIN TIME 13.4 SECONDS (11.8-14.0)
[2019-11-24 21:49] LABS: D-DIMER QUANT 435.15 ng/ml (<500)
[2019-11-24 21:57] LABS: FERRITIN 295 NG/ML (8-252); LDH LACTATE DEHYDROGENASE 181 U/L (84-246); NT-PRO BNP 252 PG/ML (<125); TRIGLYCERIDES LEVEL 138 MG/DL (<150); TROPONIN I < 0.02 NG/ML (< 0.10)
[2019-11-25] VITALS (8 sets, daily range): BP systolic 126–142; BP diastolic 76–98; O2SAT 90–95
[2019-11-25] MEDS: methylPREDNISolone INJ 125 MG/2 ML VIAL (J2930) IV SCH (01:35)
[2019-11-25] MEDS: COMBIVENT RESPIMAT 100-20MCG INHALER 4GM INH SCH ×2 (01:35→08:00)
[2019-11-25] MEDS ORDERED: PRED10TA2 PO (07:44)
[2019-11-25] MEDS ORDERED: HYDR200T3 PO (07:44)
[2019-11-25] MEDS: ENOXAPARIN 40MG/0.4ML SYRINGE (J1650 PER 10MG) SC SCH (08:26)
[2019-11-25] MEDS: HumaLOG INSULIN (NovoLOG) PER UNIT SC SCH (08:26)
[2019-11-25] MEDS: ASPIRIN 81 MG CHEW TABLET PO SCH (08:27)
[2019-11-25] MEDS: ACETAMINOPHEN TAB 650MG DOSE (2X325MG) PO SCH (08:27)
[2019-11-25] MEDS: FAMOTIDINE 20 MG TAB PO SCH (08:27)
[2019-11-25] MEDS ORDERED: AZITHROMYCIN 250MG TABLET PO SCH (09:00)
[2019-11-25 09:02] LABS: HEPATITIS B SURFACE ANTIGEN NEGATIVE (NEGATIVE)
[2019-11-25] MEDS ORDERED: VENTAER INH (09:21)
--- NOTE | 2019-11-25 10:15 | DS.PDOC ---
Discharge Summary General Date of Admission Nov 23, 2019 at 08:59 Date of Discharge 11/25/19 Discharge Summary PROCEDURES PERFORMED DURING STAY: None. ADMITTING DIAGNOSES: 1. Exacerbation of asthma, history of positive COVID infection recently. DISCHARGE DIAGNOSES: 1. Exacerbation of asthma, history of positive COVID infection recently. COMPLICATIONS/CHIEF COMPLAINT: Sars Associated Coronavirus Infection. HISTORY OF PRESENT ILLNESS: The patient is a 53-year-old female with past medical history of asthma, diabetes mellitus type 2, GERD who presented to [facility] emergency room with the chief complaint of worsening shortness of breath since 11/15/2019. The patient was diagnosed with Covid 19 on 11/17/2019. She's been having increased shortness of breath, a productive cough with clear sputum, lethargy, fevers at home as high as 101.4, nonbloody diarrhea, decreased appetite, body aches, dizziness and lightheadedness. She took her pulse ox at home which showed she was 90%. She felt as though she was in a "passed out". She tried taking 2 puffs of MDI inhaler but then called EMS. She came to the emergency room on 11/22/2019 and was discharged home with medications and told to follow-up with her primary care provider and public health. Since being at home; however, she has had increased shortness of breath, worsening back pain, dizziness and lightheadedness. She denies abdominal pain, chest pain. Her and daughter are also positive for Covid 19. In the emergency room, ABG on room air showed PaO2 in the 70s. She was placed on 2 L of oxygen. Other vital signs showed temperature 96.9, pulse 104, blood pressure 108/76, respiratory rate 28, O2 sat 96% on 2 L NC. Her lungs were di minished bilaterally on examination, no expiratory wheezing was heard. CXR showed subtle air space disease involving the periphery of the right lung similar to prior examination along with trace left basilar linear atelectasis. Fibrinogen, CRP, ferritin were elevated. D-dimer was asked than 500. The patient was admitted under inpatient status for acute asthma exacerbation, community acquired pneumonia, Covid 19 infection. HOSPITAL COURSE: Pt was admitted with exacerbation of asthma as patient does have a history of asthma in the past. She was also recently diagnosed with a positive Covid infection recently. Patient was started on IV steroids inhaler therapy and continue on home meds Initially. Also, she was supplemented with oxygen Patient responded very well to the above treatment. She was reluctant to go home yesterday. . She is clinically stable. Lungs are clear. Afebrile, asymptomatic and will be discharged home today to finish her hydroxychloroquine therapy for 5 days Patient also will be discharged on tapering dose of steroids and the MDI was renewed Patient has been advised to stay in quarantine 2 weeks from today of for diagnosis with Covid infection Follow with PCP in 2 weeks after discharge . DISCHARGE MEDICATIONS: Please see below. ALLERGIES: Please see below. PHYSICAL EXAMINATION ON DISCHARGE: VITAL SIGNS: Please see below. GENERAL: Within normal limits HEENT: PERRLA, extra ocular muscles intact NECK: Supple CARDIOVASCULAR EXAMINATION: S1, S2, regular RESPIRATORY EXAMINATION: Clear to A&P ABDOMINAL EXAMINATION: , Soft, nontender, bowel sounds present EXTREMITIES: No clubbing, cyanosis, edema SKIN: Normal NEUROLOGICAL EXAMINATION: No for a multifocal sensory deficit PSYCHIATRIC EXAMINATION: Normal LABORATORY DATA: Please see below. IMAGING: Chest x-ray: Impression: Very subtle air space disease involving the periphery of the right lung similar to prior examination along with trace left basilar linear atelectasis. PROGNOSIS: Good ACTIVITY: As tolerated. DIET: As tolerated DISCHARGE PLAN: Discharged home DISPOSITION: . Home with quarantine for 2 weeks since the diagnosis of Covid infection DISCHARGE INSTRUCTIONS: 1. As per discharge instruction. ITEMS TO FOLLOWUP ON ON OUTPATIENT: 1. Follow PCP after 2 weeks. DISCHARGE CONDITION: Stable. TIME SPENT ON DISCHARGE: 35 minutes. Vital Signs/I&Os Vital Signs Date Time Temp Pulse Resp B/P (MAP) Pulse Ox O2 Delivery O2 Flow Rate FiO2 11/25/19 08:00 97.6 113 16 142/98 (113) 91 Room Air I&O- Last 24 Hours up to 6 AM 11/25/19 06:00 Intake Total 1935 ml Output Total 3100 ml Balance -1165 ml Laboratory Data Labs 24H Laboratory Tests 2 11/24/19 11:46: Bedside Glucose (Misc Panel) 412H 11/24/19 16:51: Bedside Glucose (Misc Panel) 383H 11/24/19 20:53: Bedside Glucose (Misc Panel) 351H 11/24/19 21:15: Immature Granulocyte % (Auto) 0.7, Neutrophils (%) (Auto) 85.8H, Lymphocytes (%) (Auto) 9.3L, Monocytes (%) (Auto) 4.1, Eosinophils (%) (Auto) 0.0, Basophils (%) (Auto) 0.1, Neutrophils # (Auto) 7.3, Lymphocytes # (Auto) 0.8L, Monocytes # (Auto) 0.4, Eosinophils # (Auto) 0.0, Basophils # (Auto) 0.0, Nucleated Red Blood Cells % (auto) 0.0, Prothrombin Time 13.4, Prothromb Time International Ratio 1.05, Activated Partial Thromboplast Time 26.6, Fibrinogen 527H, D-Dimer, Quantitative 435.15, Ferritin 295H, Lactate Dehydrogenase 181, Troponin I < 0.02, C-Reactive Protein, Quantitative 2.30H, HK-Khz-L-Type Natriuretic Peptide 252H, Triglycerides Level 138 11/25/19 08:01: Bedside Glucose (Misc Panel) 361H CBC/BMP Laboratory Tests 11/24/19 21:15 FSBS Laboratory Tests Test 11/24/19 11:46 11/24/19 16:51 11/24/19 20:53 11/25/19 08:01 Range/Units Bedside Glucose (Misc Panel) 412 383 351 361 70-105 MG/DL Microbiology Microbiology 11/23/19 Blood Culture - Preliminary, Resulted No Growth after 48 hours. All Specime... 11/23/19 Blood Culture - Preliminary, Resulted No Growth after 48 hours. All Specime... Discharge Medications Scheduled Aspirin (Aspir 81) 81 Mg Tab, 81 MG PO DAILY, (Reported) Budesonide/Formoterol (Symbicort 160-4.5 Mcg Inhaler) 6 Gm Hfa.aer.ad, 2 PUFF INH BID, (Reported) Glipizide (Glipizide ER) 10 Mg Tab.er.24, 10 MG PO DAILY, (Reported) Hydroxychloroquine Sulfate (Hydroxychloroquine Sulfate) 200 Mg Tablet, 200 MG PO BID Metformin HCl (Metformin HCl) 1,000 Mg Tablet, 1,000 MG PO DAILY, (Reported) Prednisone (Prednisone) 10 Mg Tablet, 10 MG PO TAPER Take 4 tabs daily x 3 days, then 3 tabs daily x 3 days, then 2 tabs daily x 3 days, then 1 tab daily x 3 days and stop Ranitidine HCl (Ranitidine HCl) 150 Mg Tablet, 1 TAB PO DAILY, (Reported) Scheduled PRN Acetaminophen (Pain Reliever) 325 Mg Tab, 650 MG PO QID PRN for PAIN, (Reported) Albuterol Sulfate (Ventolin Hfa) 18 Gm Hfa.aer.ad, 2 PUFFS INH QID PRN for SHORTNESS OF BREATH, (Reported) Albuterol Sulfate (Ventolin Hfa) 18 Gm Hfa.aer.ad, 2 PUFF INH RQ2H PRN for WHEEZING Allergies Coded Allergies: hydrocodone (Verified Allergy, Intermediate, altered mental , 11/22/19) oxycodone (Verified Allergy, Intermediate, altered, 11/22/19) Penicillins (Verified Allergy, Unknown, 11/22/19) ARMIN FUCHS MD Nov 25, 2019 10:15
[2019-11-25] MEDS: SYMBICORT 160/4.5MCG INHALER 6GM INH SCH (10:17)
[2019-11-25] MEDS: HYDROXYCHLOROQUINE 200 MG TAB PO SCH (11:03)
[2019-11-27 00:06] LABS: HEPATITIS B CORE ANTIBODY IGG Negative (Negative)
== END 2019-11-25 11:23 | disposition home health service (06) | DRG 137 ==
LOC: M ED 06:38 → M ED INP 08:59 → ENRESERVDT 10:11 → ENRESERVTM 10:11 → M ICU 11:27 → M PCU 15:32
PROVIDERS: ADMIT Internal Medicine; ATTEND Internal Medicine
DX: U07.1 COVID-19 (principal); J12.89 Other viral pneumonia; J45.901 Unspecified asthma with (acute) exacerbation; K21.9 Gastro-esophageal reflux disease without esophagitis; Z87.891 Personal history of nicotine dependence; Z79.82 Long term (current) use of aspirin; Z79.84 Long term (current) use of oral hypoglycemic drugs; Z79.899 Other long term (current) drug therapy; Z88.0 Allergy status to penicillin; Z88.5 Allergy status to narcotic agent

== ENCOUNTER → 2019-12-04 | Outpatient (REF) | payer OTHER ==
[~2019-12-04] MED LIST changes: +GLIP10TA18 PO; +HYDR200T3 PO; +METF10004 PO; +PRED10TA2 PO; +RANI150T14 PO; +VENTAER INH
[2019-12-04 18:03] LABS: BASO # 0.1 10^3/uL (0.0-0.2); BASO % 0.6 % (0.0-1.0); EOS % 0.1 % (0.0-3.0); HEMATOCRIT 38.7 % (36.0-47.0); HEMOGLOBIN 12.7 g/dl (12.0-15.5); LYMPH # 1.1 10^3/uL (1.5-5.0); LYMPH % 12.8 % (24.0-44.0); MEAN CORPUSCULAR HEMOGLOBIN 28.5 pg (27.0-33.0); MEAN CORPUSCULAR HGB CONC 32.8 g/dl (32.0-36.5); MONO # 0.3 10^3/uL (0.0-0.8); MONO % 3.7 % (0.0-5.0); NEUTROPHILS # 7.2 10^3/uL (1.5-8.5); PLATELET COUNT, AUTOMATED 313 10^3/uL (150-450); RED BLOOD COUNT 4.45 10^6/uL (4.00-5.40); WHITE BLOOD COUNT 8.8 10^3/uL (4.0-10.0)
[2019-12-04 18:49] LABS: ALBUMIN 3.4 GM/DL (3.2-5.2); ALT/SGPT 22 U/L (12-78); BILIRUBIN,TOTAL 0.4 MG/DL (0.2-1.0); BLOOD UREA NITROGEN 20 MG/DL (7-18); CALCIUM LEVEL 8.6 MG/DL (8.5-10.1); CARBON DIOXIDE LEVEL 24 MEQ/L (21-32); CHLORIDE LEVEL 100 MEQ/L (98-107); FREE T4 1.33 NG/DL (0.76-1.46); GLOMERULAR FILTRATION RATE > 60.0 (>51); GLUCOSE, FASTING 474 MG/DL (70-100); POTASSIUM SERUM 4.4 MEQ/L (3.5-5.1); SODIUM LEVEL 133 MEQ/L (136-145); THYROID STIMULATING HORMONE 0.365 uIU/ML (0.358-3.740)
== END ==
LOC: M SHH 17:43
PROVIDERS: ATTEND Family Medicine
DX: R00.2 Palpitations (principal); R42 Dizziness and giddiness; U07.1 COVID-19

== ENCOUNTER → 2019-12-08 | Outpatient (CLI) | payer OTHER ==
--- NOTE | 2019-12-08 16:19 | ECHO ---
DATE OF STUDY: 12/08/2019 REFERRING PHYSICIAN: [facility] INDICATION: Dizziness and giddiness, palpitations. 2-D MEASUREMENTS: Left atrium: 3.6 cm Ventricular septum: 1.21 cm Posterior wall: 1.20 cm Left ventricle diastole: 3.4 cm Aortic root: 3.0 cm Aortic annulus: 2.0 cm Inferior vena cava: 1.5 cm with near transient respiratory collapse suggestive of CVP in the range of 0-5 mmHg. DOPPLER MEASUREMENTS: Aortic valve velocity: 77.9 cm/sec LVOT velocity: 76.7 cm/sec LVOT VTI: 12.9 cm No aortic regurgitation. No aortic stenosis. No mitral regurgitation. No mitral stenosis. E-A fusion waves velocity: 85.9 cm/sec No tricuspid regurgitation. No pulmonic regurgitation. Pulmonary artery systolic pressure: 27 mmHg MITRAL ANNULAR TISSUE DOPPLER: Not performed. DESCRIPTION: The rhythm was sinus tachycardia. This was moderately technically difficult echocardiogram. CONCLUSIONS: 1. Hyperdynamic LV systolic function. Left ventricular ejection fraction (LVEF) 75% by visual estimate. No regional wall motion abnormalities. Mildly reduced left ventricle and diastolic volume in keeping with some degree of volume depletion. Hyperdynamic right ventricle systolic function. LV diastolic function could not be adequately determined in the setting of sinus tachycardia and absence of mitral annular tissue Doppler recordings. 2. Suggestive of relative volume depletion. CVP estimated to be 0-5 mmHg. 3. Very small pericardial effusion without diastolic chamber collapse. This was most evident over the right ventricle free wall. No significant respiratory variation of intracardiac velocities. 4. Presence of a right pleural effusion. 5. Suggestive of normal pulmonary artery systolic pressure. 6. Moderately technically difficult echocardiogram.
--- NOTE | 2019-12-10 19:21 | HOLTMON ---
[facility] Test Date: 2019-12-08 Pat Name: RODNEY PHILLIPS Department: Room: - Gender: Female Trap Operator: Jossie Yun/MOMO GONSALES : 1965 Requested By: MARLEN MANRIQUEZ Order Number: [id number] Reading MD: Lázaro Richardson Interpretive Statements father- heart attack. brother - tachy, and 2 heart surgeries. stopped smoking 16 years ago. type 2 diabetes. Heart rate variability was normal. There were no PVC's and rare PAC's but no significant runs. No significant ST events or pauses. No atrial fibrillation was seen. One diary entry of palpitations coincided with sinus tachycardia at 126 bpm. Electronically Signed on 12-10-2019 19:20:53 EDT by Lázaro Richardson
== END ==
LOC: M CARPUL 09:07
PROVIDERS: ATTEND Family Medicine
DX: R42 Dizziness and giddiness (principal)

== ENCOUNTER → 2020-02-17 | Outpatient (REF) | payer OTHER ==
[~2020-02-17] MED LIST changes: -ASPI81TA85 PO; +ASPI81TA86 PO
[2020-02-17 17:31] LABS: HEMOGLOBIN A1c 8.5 %
[2020-02-17 18:14] LABS: ALBUMIN 3.7 GM/DL (3.2-5.2); ALT/SGPT 23 U/L (12-78); BILIRUBIN,TOTAL 0.3 MG/DL (0.2-1.0); BLOOD UREA NITROGEN 20 MG/DL (7-18); CALCIUM LEVEL 8.6 MG/DL (8.5-10.1); CARBON DIOXIDE LEVEL 24 MEQ/L (21-32); CHLORIDE LEVEL 109 MEQ/L (98-107); CREATININE FOR GFR 0.78 MG/DL (0.55-1.30); GLOMERULAR FILTRATION RATE > 60.0 (>51); GLUCOSE, FASTING 152 MG/DL (70-100); POTASSIUM SERUM 4.2 MEQ/L (3.5-5.1); SODIUM LEVEL 139 MEQ/L (136-145); TOTAL PROTEIN 7.1 GM/DL (6.4-8.2)
== END ==
LOC: M SFHCADAM 14:40
PROVIDERS: ATTEND Family Medicine
DX: E11.69 Type 2 diabetes mellitus with other specified complication (principal); F41.8 Other specified anxiety disorders

== ENCOUNTER → 2020-03-16 | Outpatient (REF) | payer OTHER ==
[2020-04-30 17:38] LABS: CHOLESTEROL RISK RATIO 5.651 (<5); FREE T4 1.03 NG/DL (0.76-1.46); THYROID STIMULATING HORMONE 0.555 uIU/ML (0.358-3.740)
== END ==
LOC: M LABDRWAD 09:30
PROVIDERS: ATTEND Internal Medicine Cardiovascular Disease
DX: E11.9 Type 2 diabetes mellitus without complications (principal); R42 Dizziness and giddiness; R00.2 Palpitations

== ENCOUNTER → 2020-04-27 | Outpatient (CLI) | payer OTHER ==
[2020-04-27 17:10] LABS: BASO # 0.1 10^3/uL (0.0-0.2); BASO % 1.2 % (0.0-1.0); EOS # 0.1 10^3/uL (0.0-0.5); EOS % 1.4 % (0.0-3.0); HEMATOCRIT 37.4 % (36.0-47.0); HEMOGLOBIN 12.5 g/dl (12.0-15.5); LYMPH # 2.2 10^3/uL (1.5-5.0); LYMPH % 37.5 % (24.0-44.0); MEAN CORPUSCULAR HEMOGLOBIN 29.6 pg (27.0-33.0); MEAN CORPUSCULAR HGB CONC 33.4 g/dl (32.0-36.5); MEAN CORPUSCULAR VOLUME 88.6 fl (80.0-96.0); MONO # 0.5 10^3/uL (0.0-0.8); MONO % 8.6 % (0.0-5.0); NEUTROPHILS % 51.1 % (36.0-66.0); PLATELET COUNT, AUTOMATED 262 10^3/uL (150-450); RED BLOOD COUNT 4.22 10^6/uL (4.00-5.40); WHITE BLOOD COUNT 5.8 10^3/uL (4.0-10.0)
[2020-04-27 17:39] LABS: C REACTIVE PROTEIN QUANTITATIV < 0.30 MG/DL (0.00-0.30); NT-PRO BNP 40 PG/ML (<125)
[2020-04-27 18:40] LABS: ERYTHROCYTE SEDIMENTATION RATE 27 mm/hr (0-30)
[2020-04-29 17:07] LABS: Lyme Disease IgG/IgM Antibodie <0.91 ISR (0.00-0.90); Lyme Disease IgM Ab Quantitati <0.80 index (0.00-0.79)
== END ==
LOC: M LABDRWAD 15:04
PROVIDERS: ATTEND Family Medicine
DX: R23.3 Spontaneous ecchymoses (principal); R06.02 Shortness of breath

== ENCOUNTER → 2020-04-27 | Outpatient (CLI) | payer OTHER ==
--- NOTE | 2020-05-12 14:26 | REP ---
CHEST X-RAY: CLINICAL: Shortness of breath. TECHNIQUE: PA and lateral views COMPARISON: 11/23/19 FINDINGS: Mediastinum and cardiac silhouette are normal. Lung curran are clear. No focal consolidation, effusion or pneumothorax. Skeletal structures are intact. IMPRESSION: No acute cardiopulmonary process or focal consolidation. MTDD
== END ==
LOC: M ADAMS 15:01
PROVIDERS: ATTEND Family Medicine
DX: R06.02 Shortness of breath (principal)

== ENCOUNTER → 2020-08-18 | Outpatient (CLI) | payer SELFPAY | LOC: M LABSMTC 14:25 | PROVIDERS: ATTEND Pediatrics | DX: Z20.822 Contact with and (suspected) exposure to COVID-19 (principal) ==

== ENCOUNTER → 2021-05-29 | Outpatient (REF) | payer OTHER ==
[2021-05-29 13:35] LABS: BASO # 0.1 10^3/uL (0.0-0.2); BASO % 1.4 % (0.0-1.0); EOS # 0.3 10^3/uL (0.0-0.5); EOS % 6.5 % (0.0-3.0); HEMATOCRIT 38.1 % (36.0-47.0); HEMOGLOBIN 12.7 g/dl (12.0-15.5); LYMPH # 1.4 10^3/uL (1.5-5.0); LYMPH % 28.6 % (24.0-44.0); MEAN CORPUSCULAR HGB CONC 33.3 g/dl (32.0-36.5); MONO # 0.5 10^3/uL (0.0-0.8); MONO % 9.1 % (2.0-8.0); NEUTROPHILS # 2.7 10^3/uL (1.5-8.5); NEUTROPHILS % 54.2 % (36.0-66.0); PLATELET COUNT, AUTOMATED 240 10^3/uL (150-450); RED BLOOD COUNT 4.38 10^6/uL (4.00-5.40)
[2021-05-29 13:55] LABS: HEMOGLOBIN A1c 8.9 %
[2021-05-29 14:11] LABS: ALBUMIN 3.1 GM/DL (3.2-5.2); ALT/SGPT 24 U/L (12-78); BILIRUBIN,TOTAL 0.3 MG/DL (0.2-1.0); BLOOD UREA NITROGEN 14 MG/DL (7-18); CALCIUM LEVEL 8.6 MG/DL (8.5-10.1); CARBON DIOXIDE LEVEL 28 MEQ/L (21-32); CHLORIDE LEVEL 106 MEQ/L (98-107); CREATININE FOR GFR 0.67 MG/DL (0.55-1.30); GLOMERULAR FILTRATION RATE > 60.0 (>51); GLUCOSE, FASTING 264 MG/DL (70-100); POTASSIUM SERUM 4.1 MEQ/L (3.5-5.1); SODIUM LEVEL 138 MEQ/L (136-145); THYROID STIMULATING HORMONE 0.817 uIU/ML (0.358-3.740); TOTAL PROTEIN 6.3 GM/DL (6.4-8.2)
== END ==
LOC: M SFHCADAM 08:11
PROVIDERS: ATTEND Family Medicine
DX: R41.89 Other symptoms and signs involving cognitive functions and awareness (principal); E11.69 Type 2 diabetes mellitus with other specified complication; R19.7 Diarrhea, unspecified

== ENCOUNTER → 2021-06-22 | Outpatient (CLI) | payer OTHER ==
--- NOTE | 2021-06-22 14:26 | REP ---
INDICATION: DIARRHEA, UNSPECIFIED TYPE. COMPARISON: CT A/P 07/25/2018. TECHNIQUE: Supine abdomen FINDINGS: Left upper quadrant shows a port with adjacent metal rings from lap band surgery. The gas pattern shows stool and gas in the left and transverse colon less than the left and rectosigmoid colon but no dilated loops. Small bowel loops unremarkable without dilatation. There are few pelvic phleboliths. There are no abnormal soft tissue calcifications over the renal fossa the, expected course of the ureters or bladder. Some degenerative changes in the lower lumbosacral spine facets without a compression fracture or destructive lesion. Pelvis, SI joints, sacrum and hips without acute finding. IMPRESSION: 1. Negative for any acute abnormality in the abdomen and pelvis with gas pattern unremarkable. 2. Bones show some minor degenerative changes. 3. Lap band surgery changes and port in the left upper quadrant. <Electronically signed by Martin Saldivar > 06/22/21 [id number]
== END ==
LOC: M ADAMS 11:26
PROVIDERS: ATTEND Family Medicine
DX: R19.7 Diarrhea, unspecified (principal); Z98.84 Bariatric surgery status; M51.37 Other intervertebral disc degeneration, lumbosacral region

== ENCOUNTER → 2021-09-13 | Outpatient (REF) | payer OTHER | LOC: M LAB REF 12:23 | PROVIDERS: ATTEND Internal Medicine Gastroenterology | DX: K51.011 Ulcerative (chronic) pancolitis with rectal bleeding (principal) ==

== ENCOUNTER → 2021-11-01 | Outpatient (REF) | payer OTHER | LOC: M LAB REF 16:19 | PROVIDERS: ATTEND Surgery | DX: L72.11 Pilar cyst (principal) ==

== ENCOUNTER 2022-01-21 22:26 | Emergency (ER) | payer OTHER ==
[~2022-01-21] VITALS: Ht 157.5 cm; Wt 84.5 kg
[2022-01-22 07:30] VITALS: BP 142/84
== END 2022-01-22 07:55 | disposition home or self-care (01) ==
LOC: M ED 22:26
DX: T14.8XXA Other injury of unspecified body region, initial encounter (principal); V40.5XXA Car driver injured in collision with pedestrian or animal in traffic accident, initial encounter; E78.5 Hyperlipidemia, unspecified; M48.061 Spinal stenosis, lumbar region without neurogenic claudication; K44.9 Diaphragmatic hernia without obstruction or gangrene; M51.34 Other intervertebral disc degeneration, thoracic region; M51.37 Other intervertebral disc degeneration, lumbosacral region; M50.321 Other cervical disc degeneration at C4-C5 level; J45.909 Unspecified asthma, uncomplicated; Z79.82 Long term (current) use of aspirin; Z79.84 Long term (current) use of oral hypoglycemic drugs; Z79.899 Other long term (current) drug therapy; Z88.0 Allergy status to penicillin; Z88.5 Allergy status to narcotic agent

== ENCOUNTER → 2022-03-28 | Outpatient (REF) | payer OTHER ==
[2022-03-28 17:29] LABS: HEMOGLOBIN A1c 11.4 %
[2022-03-28 17:45] LABS: ALBUMIN 3.5 GM/DL (3.2-5.2); ALT/SGPT 18 U/L (12-78); BILIRUBIN,TOTAL 0.4 MG/DL (0.2-1.0); BLOOD UREA NITROGEN 20 MG/DL (7-18); CALCIUM LEVEL 9.4 MG/DL (8.5-10.1); CARBON DIOXIDE LEVEL 26 MEQ/L (21-32); CHLORIDE LEVEL 106 MEQ/L (98-107); CREATININE FOR GFR 0.79 MG/DL (0.55-1.30); GLOMERULAR FILTRATION RATE > 60.0 (>51); GLUCOSE, FASTING 199 MG/DL (70-100); SODIUM LEVEL 139 MEQ/L (136-145); TOTAL PROTEIN 7.4 GM/DL (6.4-8.2)
== END ==
LOC: M SFHCADAM 14:56
PROVIDERS: ATTEND Family Medicine
DX: E11.69 Type 2 diabetes mellitus with other specified complication (principal)

== ENCOUNTER → 2022-05-02 | Outpatient (CLI) | payer OTHER ==
[2022-05-02 11:04] LABS: BASO # 0.1 10^3/uL (0.0-0.2); EOS # 0.1 10^3/uL (0.0-0.5); EOS % 1.2 % (0.0-3.0); HEMATOCRIT 41.5 % (36.0-47.0); HEMOGLOBIN 13.5 g/dl (12.0-15.5); LYMPH # 1.2 10^3/uL (1.5-5.0); LYMPH % 22.6 % (24.0-44.0); MEAN CORPUSCULAR HEMOGLOBIN 28.7 pg (27.0-33.0); MEAN CORPUSCULAR HGB CONC 32.5 g/dl (32.0-36.5); MEAN CORPUSCULAR VOLUME 88.1 fl (80.0-96.0); MONO # 0.3 10^3/uL (0.0-0.8); MONO % 5.4 % (2.0-8.0); NEUTROPHILS # 3.6 10^3/uL (1.5-8.5); NEUTROPHILS % 69.2 % (36.0-66.0); PLATELET COUNT, AUTOMATED 244 10^3/uL (150-450); RED BLOOD COUNT 4.71 10^6/uL (4.00-5.40); WHITE BLOOD COUNT 5.2 10^3/uL (4.0-10.0)
[2022-05-02 11:42] LABS: ALBUMIN 3.5 GM/DL (3.2-5.2); ALT/SGPT 18 U/L (12-78); BILIRUBIN,TOTAL 0.3 MG/DL (0.2-1.0); BLOOD UREA NITROGEN 11 MG/DL (7-18); CALCIUM LEVEL 8.7 MG/DL (8.5-10.1); CARBON DIOXIDE LEVEL 27 MEQ/L (21-32); CHLORIDE LEVEL 104 MEQ/L (98-107); CREATININE FOR GFR 0.67 MG/DL (0.55-1.30); GLOMERULAR FILTRATION RATE > 60.0 (>51); GLUCOSE, FASTING 313 MG/DL (70-100); POTASSIUM SERUM 4.4 MEQ/L (3.5-5.1); SODIUM LEVEL 135 MEQ/L (136-145); TOTAL PROTEIN 6.8 GM/DL (6.4-8.2)
[2022-05-02 12:08] LABS: CK-MB VALUE MASS 1.7 NG/ML (<3.6); MB/CK RELATIVE INDEX 1.38 (< OR =4)
== END ==
LOC: M LAB 10:38
PROVIDERS: ATTEND Physician Assistant
DX: R07.9 Chest pain, unspecified (principal)

== ENCOUNTER → 2022-05-03 | Outpatient (CLI) | payer OTHER ==
[~2022-05-03] MED LIST changes: +ISOVUE-370 76% 100ML VIAL As Ordered ONE
== END ==
LOC: M RAD 08:37
PROVIDERS: ATTEND Physician Assistant
DX: R07.9 Chest pain, unspecified (principal)
CPT/HCPCS: 71275; Q9967

== ENCOUNTER → 2022-06-14 | Outpatient (CLI) | payer OTHER ==
[~2022-06-14] MED LIST changes: -ISOVUE-370 76% 100ML VIAL As Ordered ONE
== END ==
LOC: M WHC 08:13
PROVIDERS: ATTEND Internal Medicine Gastroenterology
DX: R10.13 Epigastric pain (principal)

== ENCOUNTER → 2022-09-06 | Outpatient (CLI) | payer OTHER | LOC: M SOG 07:53 | PROVIDERS: ATTEND Orthopaedic Surgery | DX: M25.552 Pain in left hip (principal); M25.551 Pain in right hip; Z53.9 Procedure and treatment not carried out, unspecified reason ==

== ENCOUNTER → 2022-09-21 | Outpatient (CLI) | payer OTHER | LOC: M SOG 07:58 | PROVIDERS: ATTEND Orthopaedic Surgery | DX: M25.552 Pain in left hip (principal); M25.551 Pain in right hip; M79.642 Pain in left hand; M79.641 Pain in right hand ==

== ENCOUNTER → 2022-11-05 | Outpatient (REF) | payer OTHER ==
[2022-11-05 15:07] LABS: C REACTIVE PROTEIN QUANTITATIV < 0.40 MG/DL (<1.0)
[2022-11-05 15:09] LABS: RHEUMATOID FACTOR QUANT < 3.5 IU/ML (<14)
[2022-11-05 15:10] LABS: URIC ACID 3.7 MG/DL (3.1-7.8)
[2022-11-06 20:08] LABS: ANA (HEP2) Negative (.); CYCLIC CITRULLINATED PEPTIDE 6 units (0-19); SSA SJOGRENS A <0.2 AI (0.0-0.9); SSB SJOGRENS B <0.2 AI (0.0-0.9)
== END ==
LOC: M SFHCADAM 10:32
PROVIDERS: ATTEND Family Medicine
DX: M25.50 Pain in unspecified joint (principal)

== ENCOUNTER → 2022-11-05 | Outpatient (CLI) | payer OTHER | LOC: M ADAMS 10:35 | PROVIDERS: ATTEND Family Medicine | DX: M25.50 Pain in unspecified joint (principal); Z53.9 Procedure and treatment not carried out, unspecified reason ==

== ENCOUNTER → 2023-02-06 | Outpatient (REF) | payer OTHER ==
[~2023-02-06] MED LIST changes: -HYDR200T3 PO; +HYDR200T46 PO
[2023-02-06 15:03] LABS: ALBUMIN 3.3 G/DL (3.2-5.2); ALKALINE PHOSPHATASE 77 U/L (46-116); ALT/SGPT 11 U/L (7.0-40); AST/SGOT < 8 U/L (<34); BILIRUBIN,TOTAL 0.4 MG/DL (0.3-1.2); BLOOD UREA NITROGEN 17 MG/DL (9-23); CALCIUM LEVEL 9.3 MG/DL (8.5-10.1); CARBON DIOXIDE LEVEL 27 MMOL/L (20-31); CHLORIDE LEVEL 108 MMOL/L (98-107); CREATININE FOR GFR 0.63 MG/DL (0.55-1.30); GLOMERULAR FILTRATION RATE > 60.0 (>51); GLUCOSE, FASTING 240 MG/DL (60-100); POTASSIUM SERUM 4.2 MMOL/L (3.5-5.1); SODIUM LEVEL 137 MMOL/L (136-145); TOTAL PROTEIN 6.4 G/DL (5.7-8.2)
[2023-02-06 17:39] LABS: HEMOGLOBIN A1c 8.7 % (4.0-6.0)
== END ==
LOC: M SFHCADAM 09:13
PROVIDERS: ATTEND Family Medicine
DX: E11.69 Type 2 diabetes mellitus with other specified complication (principal)

== ENCOUNTER → 2023-06-14 | Outpatient (REF) | payer OTHER | LOC: M LAB REF 12:44 | PROVIDERS: ATTEND Internal Medicine Gastroenterology | DX: K51.011 Ulcerative (chronic) pancolitis with rectal bleeding (principal) ==

== ENCOUNTER → 2023-08-22 | Outpatient (CLI) | payer OTHER ==
[~2023-08-22] MED LIST changes: +CETI10CH PO; +METH2.5T48 PO; +SEMA0.257 SQ; +[UNRECOGNIZED DRUG - REMARK] PO; +glargine insulin SC
[2023-08-22 13:44] LABS: BASO # 0.1 10^3/uL (0.0-0.2); BASO % 1.4 % (0.0-1.0); EOS # 0.3 10^3/uL (0.0-0.5); EOS % 4.4 % (0.0-3.0); HEMATOCRIT 42.4 % (36.0-47.0); HEMOGLOBIN 14.1 g/dl (12.0-15.5); LYMPH # 1.6 10^3/uL (1.5-5.0); LYMPH % 27.4 % (24.0-44.0); MEAN CORPUSCULAR HEMOGLOBIN 28.7 pg (27.0-33.0); MEAN CORPUSCULAR HGB CONC 33.3 g/dl (32.0-36.5); MEAN CORPUSCULAR VOLUME 86.4 fl (80.0-96.0); MONO # 0.5 10^3/uL (0.0-0.8); MONO % 8.2 % (2.0-8.0); NEUTROPHILS # 3.3 10^3/uL (1.5-8.5); NEUTROPHILS % 58.3 % (36.0-66.0); PLATELET COUNT, AUTOMATED 255 10^3/uL (150-450); RED BLOOD COUNT 4.91 10^6/uL (4.00-5.40); WHITE BLOOD COUNT 5.7 10^3/uL (4.0-10.0)
[2023-08-22 14:10] LABS: ALBUMIN 3.5 G/DL (3.2-5.2); ALKALINE PHOSPHATASE 78 U/L (46-116); ALT/SGPT 20 U/L (7.0-40); AST/SGOT 13 U/L (<34); BILIRUBIN,TOTAL 0.5 MG/DL (0.3-1.2); BLOOD UREA NITROGEN 17 MG/DL (9-23); CALCIUM LEVEL 8.9 MG/DL (8.5-10.1); CARBON DIOXIDE LEVEL 28 MMOL/L (20-31); CHLORIDE LEVEL 105 MMOL/L (98-107); CREATININE FOR GFR 0.61 MG/DL (0.55-1.30); GLOMERULAR FILTRATION RATE > 60.0 (>51); GLUCOSE, FASTING 229 MG/DL (60-100); POTASSIUM SERUM 4.8 MMOL/L (3.5-5.1); SODIUM LEVEL 139 MMOL/L (136-145); TOTAL PROTEIN 6.8 G/DL (5.7-8.2)
[2023-08-22 14:38] LABS: HEMOGLOBIN A1c 9.1 % (4.0-6.0)
== END ==
LOC: M PLALAB 11:04
PROVIDERS: ATTEND Family Medicine
DX: Z01.818 Encounter for other preprocedural examination (principal); E11.69 Type 2 diabetes mellitus with other specified complication

== ENCOUNTER 2023-08-26 11:57 | Day surgery (SDC) | payer OTHER ==
[~2023-08-26] VITALS: Ht 157.5 cm; Wt 88.9 kg
[2023-08-26] MEDS ORDERED: LR 1,000 ML IV SCH ×2 (12:35→17:20)
[2023-08-26] MEDS ORDERED: ONDANSETRON 4MG 2ML VIAL As Ordered ONE (14:13)
[2023-08-26] MEDS ORDERED: fentaNYL 100 MCG/2 ML INJECTION As Ordered ONE (14:13)
[2023-08-26] MEDS ORDERED: LIDOCAINE 2% 100MG/5ML SDV (FOR ANES.) As Ordered ONE (14:13)
[2023-08-26] MEDS ORDERED: KETOROLAC 60MG 2ML VIAL As Ordered ONE (14:13)
[2023-08-26] MEDS ORDERED: propofoL 200 MG/20 ML VIAL As Ordered ONE (14:13)
[2023-08-26] MEDS ORDERED: MIDAZOLAM INJ 2MG/2ML VIAL As Ordered ONE (14:13)
[2023-08-26] MEDS ORDERED: BACITRACIN OINTMENT 30GM TUBE As Ordered ONE (15:56)
[2023-08-26] MEDS ORDERED: ACETAMINOPHEN 1000MG 100ML IV BAG As Ordered ONE (16:47)
[2023-08-26] MEDS ORDERED: HYDROMORPHONE HCL 0.5 MG/ 0.5 ML SYRINGE IV PRN (17:20)
[2023-08-26] MEDS ORDERED: fentaNYL 100 MCG/2 ML INJECTION IV PRN (17:20)
[2023-08-26] MEDS ORDERED: ONDANSETRON 4MG 2ML VIAL IV PRN (17:20)
[2023-08-26] MEDS ORDERED: oxyCODONE 5MG TAB PO PRN (17:20)
[2023-08-26] MEDS ORDERED: METOCLOPRAMIDE INJ 10MG/2ML VIAL IV PRN (17:45)
[2023-08-26 18:45] VITALS: BP 129/71; TEMP 97.3; O2SAT 96
== END 2023-08-26 19:26 | disposition home or self-care (01) ==
LOC: M SDC 11:57
PROVIDERS: ATTEND Orthopaedic Surgery Hand Surgery
DX: G56.02 Carpal tunnel syndrome, left upper limb (principal); M65.312 Trigger thumb, left thumb; M65.332 Trigger finger, left middle finger; J45.909 Unspecified asthma, uncomplicated; E10.9 Type 1 diabetes mellitus without complications; K51.90 Ulcerative colitis, unspecified, without complications; Z79.899 Other long term (current) drug therapy; Z79.4 Long term (current) use of insulin; Z79.51 Long term (current) use of inhaled steroids; Z88.5 Allergy status to narcotic agent; Z88.0 Allergy status to penicillin
CPT/HCPCS: 26055; 29848; J0131; J0665; J1100; J1885; J2250; J2405; J2765; J3010

== ENCOUNTER → 2023-10-28 | Outpatient (REF) | payer OTHER ==
[2023-10-28 13:30] LABS: URIC ACID 4.4 MG/DL (3.1-7.8)
[2023-10-28 13:32] LABS: C REACTIVE PROTEIN QUANTITATIV < 0.40 MG/DL (<1.0)
[2023-10-28 13:33] LABS: BASO # 0.1 10^3/uL (0.0-0.2); BASO % 1.2 % (0.0-1.0); EOS # 0.2 10^3/uL (0.0-0.5); EOS % 3.7 % (0.0-3.0); HEMATOCRIT 39.9 % (36.0-47.0); HEMOGLOBIN 13.1 g/dl (12.0-15.5); LYMPH # 1.6 10^3/uL (1.5-5.0); LYMPH % 28.7 % (24.0-44.0); MEAN CORPUSCULAR HEMOGLOBIN 28.7 pg (27.0-33.0); MEAN CORPUSCULAR HGB CONC 32.8 g/dl (32.0-36.5); MEAN CORPUSCULAR VOLUME 87.3 fl (80.0-96.0); MONO # 0.5 10^3/uL (0.0-0.8); MONO % 8.6 % (2.0-8.0); NEUTROPHILS # 3.2 10^3/uL (1.5-8.5); NEUTROPHILS % 57.4 % (36.0-66.0); PLATELET COUNT, AUTOMATED 227 10^3/uL (150-450); RED BLOOD COUNT 4.57 10^6/uL (4.00-5.40); RHEUMATOID FACTOR QUANT 7.3 IU/ML (<14); WHITE BLOOD COUNT 5.6 10^3/uL (4.0-10.0)
[2023-10-28 13:34] LABS: ALBUMIN 3.3 G/DL (3.2-5.2); ALKALINE PHOSPHATASE 68 U/L (46-116); ALT/SGPT < 9 U/L (7.0-40); AST/SGOT 15 U/L (<34); BILIRUBIN,TOTAL 0.3 MG/DL (0.3-1.2); BLOOD UREA NITROGEN 19 MG/DL (9-23); CALCIUM LEVEL 8.4 MG/DL (8.5-10.1); CARBON DIOXIDE LEVEL 28 MMOL/L (20-31); CHLORIDE LEVEL 105 MMOL/L (98-107); CREATININE FOR GFR 0.64 MG/DL (0.55-1.30); GLOMERULAR FILTRATION RATE > 60.0 (>51); GLUCOSE, FASTING 158 MG/DL (60-100); POTASSIUM SERUM 4.4 MMOL/L (3.5-5.1); SODIUM LEVEL 137 MMOL/L (136-145); TOTAL PROTEIN 6.5 G/DL (5.7-8.2)
[2023-10-28 13:48] LABS: ERYTHROCYTE SEDIMENTATION RATE 23 mm/hr (0-30)
[2023-10-30 01:07] LABS: ANA (HEP2) Negative (.); CYCLIC CITRULLINATED PEPTIDE 1 units (0-19)
== END ==
LOC: M SFHCADAM 08:15
PROVIDERS: ATTEND Family Medicine
DX: M25.50 Pain in unspecified joint (principal)

== ENCOUNTER → 2024-05-05 | Outpatient (REF) | payer OTHER | LOC: M LAB REF 15:00 | PROVIDERS: ATTEND Surgery | DX: L72.11 Pilar cyst (principal) ==

== ENCOUNTER → 2024-06-17 | Outpatient (REF) | payer OTHER | LOC: M LAB REF 08:25 | PROVIDERS: ATTEND Surgery | DX: L72.11 Pilar cyst (principal) ==

== ENCOUNTER 2024-11-23 17:14 | Emergency (ER) | payer OTHER ==
[~2024-11-23] VITALS: Ht 157.5 cm; Wt 88.8 kg
[~2024-11-23 17:14] MED LIST changes: +GLIP-320 PO; -GLIP10TA18 PO
[2024-11-23 21:50] VITALS: TEMP 97.8
[2024-11-23] MEDS ORDERED: METH-1165 PO (22:58)
[2024-11-23] MEDS ORDERED: KETO10TAB PO (22:58)
[2024-11-23] MEDS: methocarbamoL 750 MG TAB PO ONE (23:23)
[2024-11-23] MEDS: OXYCODONE/APAP 5MG/325MG(HOME DOSE PACK) PO ONE (23:23)
[2024-11-23] MEDS: KETOROLAC 60MG 2ML VIAL IM ONE (23:27)
[2024-11-23 23:30] VITALS: BP 185/98; O2SAT 99
== END 2024-11-23 23:30 | disposition home or self-care (01) ==
LOC: M ED 17:14
DX: M54.32 Sciatica, left side (principal); J45.909 Unspecified asthma, uncomplicated; E11.9 Type 2 diabetes mellitus without complications; I10 Essential (primary) hypertension; Z88.0 Allergy status to penicillin; Z88.5 Allergy status to narcotic agent; Z79.52 Long term (current) use of systemic steroids; Z79.899 Other long term (current) drug therapy; Z79.1 Long term (current) use of non-steroidal anti-inflammatories (NSAID)
CPT/HCPCS: 96372; 99284; J1885

== ENCOUNTER → 2024-12-10 | Outpatient (CLI) | payer OTHER ==
[~2024-12-10] MED LIST changes: +KETO10TAB PO; +METH-1165 PO
[2024-12-10 09:31] LABS: HEMOGLOBIN A1c 6.6 % (4.0-6.0)
[2024-12-10 09:37] LABS: BASO # 0.1 10^3/uL (0.0-0.2); BASO % 1.1 % (0.0-1.0); EOS # 0.2 10^3/uL (0.0-0.5); EOS % 2.8 % (0.0-3.0); HEMOGLOBIN 12.6 g/dl (12.0-15.5); LYMPH # 1.6 10^3/uL (1.5-5.0); LYMPH % 28.7 % (24.0-44.0); MEAN CORPUSCULAR HEMOGLOBIN 28.9 pg (27.0-33.0); MEAN CORPUSCULAR HGB CONC 33.2 g/dl (32.0-36.5); MEAN CORPUSCULAR VOLUME 87.2 fl (80.0-96.0); MONO # 0.4 10^3/uL (0.0-0.8); MONO % 7.9 % (2.0-8.0); NEUTROPHILS # 3.2 10^3/uL (1.5-8.5); NEUTROPHILS % 59.1 % (36.0-66.0); PLATELET COUNT, AUTOMATED 238 10^3/uL (150-450); RED BLOOD COUNT 4.36 10^6/uL (4.00-5.40); WHITE BLOOD COUNT 5.4 10^3/uL (4.0-10.0)
[2024-12-10 09:51] LABS: ALBUMIN 3.5 G/DL (3.2-5.2); ALKALINE PHOSPHATASE 65 U/L (35-104); ALT/SGPT 18 U/L (7.0-40); AST/SGOT 13 U/L (<34); BILIRUBIN,TOTAL 0.4 MG/DL (0.3-1.2); BLOOD UREA NITROGEN 19 MG/DL (9-23); CALCIUM LEVEL 8.9 MG/DL (8.5-10.1); CARBON DIOXIDE LEVEL 28 MMOL/L (20-31); CHLORIDE LEVEL 105 MMOL/L (98-107); CHOLESTEROL LEVEL 221 MG/DL (<200); CREATININE FOR GFR 0.68 MG/DL (0.55-1.30); GLOMERULAR FILTRATION RATE > 90.0 (>51); GLUCOSE, FASTING 138 MG/DL (60-100); HDL CHOLESTEROL 49.1 MG/DL (>40); LDL CHOLESTEROL 145.7 MG/DL (<100); NON-HDL-C 171.9 MG/DL; POTASSIUM SERUM 4.3 MMOL/L (3.5-5.1); SODIUM LEVEL 140 MMOL/L (136-145); TOTAL PROTEIN 6.6 G/DL (5.7-8.2); TRIGLYCERIDES LEVEL 131 MG/DL (<150)
[2024-12-10 09:54] LABS: THYROID STIMULATING HORMONE 0.409 uIU/ML (0.55-4.78)
[2024-12-10 09:55] LABS: TOTAL 25(OH) VITAMIN D 12.1 NG/ML (20.0-100.0)
== END ==
LOC: M LAB 08:39
PROVIDERS: ATTEND Physician Assistant Medical
DX: E11.65 Type 2 diabetes mellitus with hyperglycemia (principal)

== ENCOUNTER → 2024-12-10 | Outpatient (CLI) | payer OTHER | LOC: M RAD 08:33 | PROVIDERS: ATTEND Family Medicine | DX: M54.32 Sciatica, left side (principal) ==

== ENCOUNTER → 2025-06-08 | Outpatient (REF) | payer OTHER | LOC: M SFHCADAM 13:00 | PROVIDERS: ATTEND Family Medicine | DX: J06.9 Acute upper respiratory infection, unspecified (principal) ==